=== PATIENT | male | born 1985 | race Caucasian/White ===

== ENCOUNTER 2017-07-29 23:39 | Inpatient (IN) | payer MEDICAID ==
[~2017-07-29] VITALS: Ht 177.8 cm; Wt 50.0 kg
[~2017-07-29 23:39] MED LIST: ALBU2.5V12 NEB; CHLO25CA10 PO
[2017-07-29] MEDS ORDERED: normal saline 1000ML IV soln IVB ONE ×2 (23:50)
[2017-07-29] MEDS ORDERED: morphine 4 MG/ML inj SYRINge IV ONE (23:50)
[2017-07-29] MEDS ORDERED: ondansetron/PF 4mg/2ml inj IV ONE (23:50)
[2017-07-30 00:45] LABS: BASOPHILS # (AUTO) 0.1 X10'3 (0-0.2); BASOPHILS % (AUTO) 0.4 % (0-1); EOSINOPHILS % (AUTO) 0 % (0-6); HEMATOCRIT 44.9 % (42.0-52.0); HEMOGLOBIN 14.9 g/dl (14.0-17.9); LYMPHOCYTES # (AUTO) 0.7 X10'3 (1.1-4.8); LYMPHOCYTES % (AUTO) 4.4 % (21-51); MEAN CORPUSCULAR HEMOGLOBIN 34.2 PG (27.0-31.0); MEAN CORPUSCULAR HGB CONC 33.3 % (33.0-36.5); MEAN CORPUSCULAR VOLUME 102.9 FL (78-98); MEAN PLATELET VOLUME 8.7 FL (7.4-10.4); MONOCYTES # (AUTO) 0.9 X10'3 (0-0.9); MONOCYTES % (AUTO) 5.8 % (2-12); NEUTROPHILS # (AUTO) 13.1 X10'3 (1.8-7.7); NEUTROPHILS % (AUTO) 89.4 % (42-75); PLATELET COUNT 206 X10'3 (140-440); RED BLOOD COUNT 4.36 X10'6 (4.70-6.10); RED CELL DISTRIBUTION WIDTH 13.7 % (11.5-14.5); WHITE BLOOD COUNT 14.8 X10'3 (4.5-11.0)
[2017-07-30 00:58] LABS: ALANINE AMINOTRANSFERASE 53 U/L (12-78); ALBUMIN 4.1 G/DL (3.4-5.0); ALBUMIN/GLOBULIN RATIO 1.2 (1.1-1.5); ALKALINE PHOSPHATASE 74 IU/L (46-116); ANION GAP 21 (8-16); ASPARTATE AMINO TRANSFERASE 40 U/L (10-37); BILIRUBIN,TOTAL 0.8 MG/DL (0.1-1.0); BLOOD UREA NITROGEN 19 MG/DL (7-18); BUN/CREATININE RATIO 17.6 (5.4-32.0); CALCIUM 8.5 MG/DL (8.5-10.1); CHLORIDE 104 MMOL/L (99-107); CREATININE 1.08 MG/DL (0.60-1.10); GLUCOSE 120 MG/DL (70-104); LIPASE 3154 U/L (73-393); SODIUM 146 MMOL/L (135-145); TOTAL CARBON DIOXIDE 21.3 MMOL/L (24-32); TOTAL PROTEIN 7.4 G/DL (6.4-8.2); eGFR 80 ML/MIN
[2017-07-30 00:59] LABS: ETHANOL < 0.010 GM/DL (0.0-0.010)
[2017-07-30] MEDS ORDERED: morphine 4 MG/ML inj SYRINge IV ONE (01:10)
[2017-07-30] MEDS ORDERED: normal saline 1000ML IV soln IVB ONE (01:45)
[2017-07-30] MEDS ORDERED: HYDROmorphone inj. 0.5 MG/0.5 ML DISP.SYRIN IV PRN (02:00)
[2017-07-30] MEDS ORDERED: magnesium Cl slow-release 64mg tablet PO PRN (02:00)
[2017-07-30] MEDS ORDERED: magnesium hydroxide 30ml (MOM) UD suspension PO PRN (02:00)
[2017-07-30] MEDS ORDERED: potassium Cl 20 mEq SR tablet PO PRN ×2 (02:00)
[2017-07-30] MEDS ORDERED: ondansetron/PF 4mg/2ml inj IV PRN (02:00)
[2017-07-30] MEDS ORDERED: magnesium 4gm in 100ml NS 100 ML IV PRN (02:00)
[2017-07-30] MEDS ORDERED: haloperidol lactate 5mg/ml inj IM PRN (02:00)
[2017-07-30] MEDS ORDERED: potassium Cl 40MEQ/NS 500ml 500 ML IV PRN ×2 (02:00)
[2017-07-30] MEDS ORDERED: thiamine 100mg/ml 2ml inj. IV ONE (02:00)
[2017-07-30] MEDS ORDERED: magnesium 2GM in 50ml NS 50 ML IV PRN (02:00)
[2017-07-30] MEDS ORDERED: acetaminophen 325mg tablet PO PRN (02:00)
[2017-07-30] MEDS ORDERED: haloperidol 5mg tablet PO PRN (02:00)
[2017-07-30] MEDS ORDERED: mag hydrox/Alum hydrox/simeth 30ml oral suspension PO PRN (02:00)
[2017-07-30] MEDS ORDERED: dextrose 50%-water 50ml dispensing syringe IV PRN (02:00)
[2017-07-30] MEDS: HYDROmorphone inj. 0.5 MG/0.5 ML DISP.SYRIN IV PRN ×4 (02:33→23:08)
[2017-07-30 02:52] LABS: CLARITY,URINE SLIGHTLY CLOUDY (Clear); COLOR,URINE YELLOW (Yellow); GLUCOSE, URINE NEGATIVE (Neg); KETONES,URINE >=80 mg/dl (Neg); LEUKOCYTE ESTERASE ,URINE NEGATIVE (Neg); NITRITES, URINE NEGATIVE (Neg); OCCULT BLOOD,URINE NEGATIVE (Neg); PROTEIN,URINE 100 mg/dl (Neg); UROBILINOGEN,URINE 0.2 E.U/dL (0.2-1.0)
[2017-07-30 02:54] LABS: UA COLLECTION TYPE VOIDED
[2017-07-30 02:57] LABS: BACTERIA,URINE FEW /HPF (Neg); MUCUS STRANDS MANY /LPF (Neg); RBC,URINE NONE SEEN /HPF (0-2); SQUAMOUS EPITHELIAL CELL,UR FEW /LPF (FEW)
[2017-07-30] MEDS: normal saline 1000ml 1,000 ML IV SCH ×2 (03:11→12:11)
[2017-07-30] MEDS: K and/or MAG REPLACEMENT MC SCH (03:13)
[2017-07-30] MEDS: LORazepam 2 mg/ml vial IV PRN ×3 (04:46→06:37)
[2017-07-30] MEDS: heparin, porcine 5000 units/ml vial SQ SCH ×2 (08:39→20:25)
[2017-07-30 09:12] LABS: URINE AMPHETAMINE SCREEN NEGATIVE (Neg); URINE BARBITUATE SCREEN NEGATIVE (Neg); URINE BENZODIAZEPINES SCREEN NEGATIVE (Neg); URINE CANNABINOID SCREEN POSITIVE (Neg); URINE COCAINE SCREEN NEGATIVE (Neg); URINE METHADONE SCREEN NEGATIVE (Neg); URINE OPIATE SCREEN POSITIVE (Neg); URINE PHENCYCLIDINE SCREEN NEGATIVE (Neg)
[2017-07-30 19:00] VITALS: BP 109/82
[2017-07-30] MEDS ORDERED: temazepam 15mg capsule PO PRN (21:00)
[2017-07-31] VITALS: BP 128/82
[2017-07-31] MEDS: HYDROmorphone inj. 0.5 MG/0.5 ML DISP.SYRIN IV PRN ×3 (03:25→12:31)
[2017-07-31] MEDS: normal saline 1000ml 1,000 ML IV SCH ×2 (03:25→08:11)
[2017-07-31 05:08] LABS: BASOPHILS % (AUTO) 0.2 % (0-1); EOSINOPHILS # (AUTO) 0.1 X10'3 (0-0.9); EOSINOPHILS % (AUTO) 1.5 % (0-6); HEMATOCRIT 39.4 % (42.0-52.0); HEMOGLOBIN 13.6 g/dl (14.0-17.9); LYMPHOCYTES # (AUTO) 2.1 X10'3 (1.1-4.8); LYMPHOCYTES % (AUTO) 21.7 % (21-51); MEAN CORPUSCULAR HEMOGLOBIN 35.6 PG (27.0-31.0); MEAN CORPUSCULAR HGB CONC 34.6 % (33.0-36.5); MEAN CORPUSCULAR VOLUME 102.9 FL (78-98); MEAN PLATELET VOLUME 8.8 FL (7.4-10.4); MONOCYTES # (AUTO) 0.5 X10'3 (0-0.9); MONOCYTES % (AUTO) 5.2 % (2-12); NEUTROPHILS % (AUTO) 71.4 % (42-75); PLATELET COUNT 121 X10'3 (140-440); RED BLOOD COUNT 3.83 X10'6 (4.70-6.10); WHITE BLOOD COUNT 9.8 X10'3 (4.5-11.0)
[2017-07-31 05:44] LABS: ALANINE AMINOTRANSFERASE 42 U/L (12-78); ALBUMIN 3.2 G/DL (3.4-5.0); ALBUMIN/GLOBULIN RATIO 1.1 (1.1-1.5); ALKALINE PHOSPHATASE 58 IU/L (46-116); ANION GAP 12 (8-16); ASPARTATE AMINO TRANSFERASE 37 U/L (10-37); BILIRUBIN,TOTAL 0.9 MG/DL (0.1-1.0); BLOOD UREA NITROGEN 5 MG/DL (7-18); BUN/CREATININE RATIO 7.6 (5.4-32.0); CALCIUM 8.1 MG/DL (8.5-10.1); CHLORIDE 103 MMOL/L (99-107); CHOL/HDL RATIO 2.9 (0.00-4.99); CHOLESTEROL 125 MG/DL (0-200); CREATININE 0.66 MG/DL (0.60-1.10); GLUCOSE 69 MG/DL (70-104); HDL CHOLESTEROL 43 MG/DL (35-60); LDL CHOLESTEROL 60 MG/DL (50-100); MAGNESIUM 1.7 MG/DL (1.5-2.4); SODIUM 142 MMOL/L (135-145); TRIGLYCERIDES 77 MG/DL (20-135); eGFR > 90 ML/MIN
[2017-07-31 07:00] VITALS: BP 130/89
[2017-07-31] MEDS ORDERED: dextrose ORAL solution 15 GM/59 ML bottle PO PRN ×2 (07:55)
[2017-07-31] MEDS ORDERED: glucagon, human recombinant 1mg kit SUBCUT PRN (07:55)
[2017-07-31] MEDS ORDERED: dextrose 50%-water 50ml dispensing syringe IV PRN ×2 (07:55)
[2017-07-31] MEDS: K and/or MAG REPLACEMENT MC SCH (08:00)
[2017-07-31] MEDS: heparin, porcine 5000 units/ml vial SQ SCH (08:26)
[2017-07-31] MEDS ORDERED: NO HOME MEDS (10:30)
[2017-07-31] MEDS: LORazepam 2 mg/ml vial IV PRN ×2 (10:57→12:31)
[2017-07-31 11:00] VITALS: BP 137/97
[2017-07-31] MEDS ORDERED: CHLO25CA10 PO (16:12)
[2017-07-31] MEDS ORDERED: THI100T PO (16:12)
[2017-07-31] MEDS ORDERED: ATI1T PO (16:12)
[2017-08-01] MEDS ORDERED: LORazepam 2 mg/ml vial IV PRN (02:00)
[2017-08-01] MEDS ORDERED: LORazepam 1 MG tablet PO PRN (02:00)
[2017-08-03] MEDS ORDERED: LORazepam 2 mg/ml vial IV PRN (02:00)
[2017-08-03] MEDS ORDERED: LORazepam 1 MG tablet PO PRN (02:00)
== END 2017-07-31 17:33 | disposition home or self-care (01) | DRG 282 ==
LOC: ER 23:39 → ED HOLD 07-30 01:56 → SUR 3N 07-30 17:20
PROVIDERS: ADMIT Internal Medicine; ATTEND Internal Medicine
DX: K85.20 Alcohol induced acute pancreatitis without necrosis or infection (principal); Z68.1 Body mass index [BMI] 19.9 or less, adult; E86.0 Dehydration; F10.10 Alcohol abuse, uncomplicated; F12.90 Cannabis use, unspecified, uncomplicated; F17.210 Nicotine dependence, cigarettes, uncomplicated; F41.9 Anxiety disorder, unspecified; K86.1 Other chronic pancreatitis; R00.0 Tachycardia, unspecified
CPT/HCPCS: 36415; 71045; 80053; 80061; 80305; 80320; 81001; 82948; 83690; 83735; 84132; 85025; 87070; 87088; 96361; 96374; 96375; 96376; 99285; J1170; J1630; J1644; J2060; J2270; J2405; J3411; J3480; J7030

== ENCOUNTER 2017-08-09 14:52 | Emergency (ER) | payer MEDICAID ==
[~2017-08-09] VITALS: Ht 165.1 cm; Wt 60.0 kg
[~2017-08-09 14:52] MED LIST changes: -ALBU2.5V12 NEB; +ATI1T PO; +THI100T PO
[2017-08-09 15:36] VITALS: BP 119/81
[2017-08-09] MEDS ORDERED: ibuprofen tablet 400 MG TABLET PO ONE (17:10)
== END 2017-08-09 18:33 | disposition home or self-care (01) ==
LOC: ER 14:55
DX: S60.221A Contusion of right hand, initial encounter (principal); F17.200 Nicotine dependence, unspecified, uncomplicated; F12.10 Cannabis abuse, uncomplicated; Z79.899 Other long term (current) drug therapy; W20.8XXA Other cause of strike by thrown, projected or falling object, initial encounter; Y93.89 Activity, other specified; Y92.89 Other specified places as the place of occurrence of the external cause; Y99.8 Other external cause status
CPT/HCPCS: 29125; 73130; 99284; A6449

== ENCOUNTER 2017-08-20 13:39 | Outpatient (CLI) | payer MEDICAID ==
[2017-08-20 13:41] VITALS: BP 132/97
== END 2017-08-20 14:30 | disposition home or self-care (01) ==
LOC: ORTHO 13:39
PROVIDERS: ATTEND Nurse Practitioner Family
DX: S62.001A Unspecified fracture of navicular [scaphoid] bone of right wrist, initial encounter for closed fracture (principal); F17.210 Nicotine dependence, cigarettes, uncomplicated; K85.90 Acute pancreatitis without necrosis or infection, unspecified; F12.90 Cannabis use, unspecified, uncomplicated; Z72.89 Other problems related to lifestyle; X58.XXXA Exposure to other specified factors, initial encounter; Y93.89 Activity, other specified; Y92.9 Unspecified place or not applicable; Y99.9 Unspecified external cause status
CPT/HCPCS: 29075; 99213; A4590

== ENCOUNTER 2017-09-03 13:33 | Outpatient (CLI) | payer MEDICAID ==
[2017-09-03 13:31] VITALS: BP 105/72
== END 2017-09-03 14:29 | disposition home or self-care (01) ==
LOC: ORTHO 13:33
PROVIDERS: ATTEND Nurse Practitioner Family
DX: S69.91XD Unspecified injury of right wrist, hand and finger(s), subsequent encounter (principal); K85.90 Acute pancreatitis without necrosis or infection, unspecified; F17.200 Nicotine dependence, unspecified, uncomplicated; F12.90 Cannabis use, unspecified, uncomplicated; Z72.89 Other problems related to lifestyle; X58.XXXD Exposure to other specified factors, subsequent encounter
CPT/HCPCS: 73110; 99213

== ENCOUNTER 2018-12-07 10:13 | Emergency (ER) | payer MEDICAID, OTHER ==
[~2018-12-07] VITALS: Ht 165.1 cm; Wt 56.0 kg
[~2018-12-07 10:13] MED LIST changes: -ATI1T PO; -CHLO25CA10 PO; +IBUP-1986 PO; +NO HOME MEDS; -THI100T PO
--- NOTE | 2018-12-07 10:29 | NUR ---
PT GIVEN URINE SPECIMEN CUP AND PT AMBULATORY TO BATHROOM WITH STEADY GAIT TO PROVIDE URINE SAMPLE PER ORDERS NOW.
[2018-12-07 10:48] LABS: BASOPHILS # (AUTO) 0.1 X10'3 (0-0.2); BASOPHILS % (AUTO) 0.8 % (0-1); EOSINOPHILS # (AUTO) 0.2 X10'3 (0-0.9); EOSINOPHILS % (AUTO) 2.4 % (0-6); HEMATOCRIT 46.7 % (42.0-52.0); HEMOGLOBIN 16.1 g/dl (14.0-17.9); LYMPHOCYTES # (AUTO) 3.4 X10'3 (1.1-4.8); LYMPHOCYTES % (AUTO) 33.6 % (21-51); MEAN CORPUSCULAR HEMOGLOBIN 35.5 PG (27.0-31.0); MEAN CORPUSCULAR HGB CONC 34.5 g/dL (33.0-36.5); MEAN CORPUSCULAR VOLUME 102.9 FL (78-98); MONOCYTES # (AUTO) 0.7 X10'3 (0-0.9); MONOCYTES % (AUTO) 7.3 % (2-12); NEUTROPHILS # (AUTO) 5.7 X10'3 (1.8-7.7); NEUTROPHILS % (AUTO) 55.9 % (42-75); PLATELET COUNT 265 X10'3 (140-440); RED BLOOD COUNT 4.54 X10'6 (4.70-6.10); RED CELL DISTRIBUTION WIDTH 13.4 % (11.5-14.5); WHITE BLOOD COUNT 10.2 X10'3 (4.5-11.0)
[2018-12-07 10:50] LABS: CLARITY,URINE CLEAR (Clear); COLOR,URINE YELLOW (Yellow); GLUCOSE, URINE NEGATIVE (Neg); KETONES,URINE NEGATIVE (Neg); LEUKOCYTE ESTERASE ,URINE NEGATIVE (Neg); NITRITES, URINE NEGATIVE (Neg); OCCULT BLOOD,URINE NEGATIVE (Neg); PROTEIN,URINE NEGATIVE (Neg); UROBILINOGEN,URINE 0.2 E.U/dL (0.2-1.0)
[2018-12-07] MEDS ORDERED: proCHLORperazine 10 MG/2 ml inj IV ONE (10:50)
[2018-12-07] MEDS ORDERED: LIDOcaine Viscous 15ml cup PO ONE (10:50)
[2018-12-07] MEDS ORDERED: mag hydrox/Alum hydrox/simeth 30ml oral suspension PO ONE (10:50)
[2018-12-07] MEDS ORDERED: normal saline 1000ML IV soln IVB ONE (10:50)
[2018-12-07] MEDS ORDERED: pantoprazole 40 MG vial IV ONE (10:50)
[2018-12-07] MEDS ORDERED: ESOMEPRAZOLE 40 MG VIAL IV ONE (11:00)
[2018-12-07 11:01] LABS: ALANINE AMINOTRANSFERASE 84 U/L (12-78); ALBUMIN 3.8 G/DL (3.4-5.0); ALBUMIN/GLOBULIN RATIO 1.1 (1.1-1.5); ALKALINE PHOSPHATASE 106 IU/L (46-116); ANION GAP 13 (8-16); ASPARTATE AMINO TRANSFERASE 82 U/L (10-37); BILIRUBIN,TOTAL 0.4 MG/DL (0.1-1.0); BLOOD UREA NITROGEN 5 MG/DL (7-18); BUN/CREATININE RATIO 6.6 (5.4-32.0); CALCIUM 8.1 MG/DL (8.5-10.1); CHLORIDE 109 MMOL/L (99-107); CREATININE 0.76 MG/DL (0.60-1.10); GLUCOSE 96 MG/DL (70-104); LIPASE 294 U/L (73-393); POTASSIUM 4.2 MMOL/L (3.5-5.1); SODIUM 146 MMOL/L (135-145); TOTAL CARBON DIOXIDE 24.5 MMOL/L (24-32); TOTAL PROTEIN 7.4 G/DL (6.4-8.2); eGFR > 90 ML/MIN
[2018-12-07 11:03] LABS: UA COLLECTION TYPE CLN CATCH MIDSTREAM
[2018-12-07 12:30] VITALS: BP 109/56
[2018-12-07] MEDS ORDERED: OMEP40CA13 PO (12:30)
--- NOTE | 2018-12-07 12:33 | NUR ---
PT STATES PAIN SUBSIDED A LITTLE NOT BAD
== END 2018-12-07 12:52 | disposition home or self-care (01) ==
LOC: ER 10:14
DX: R10.12 Left upper quadrant pain (principal); G89.29 Other chronic pain; F12.90 Cannabis use, unspecified, uncomplicated; Z98.890 Other specified postprocedural states; Z79.899 Other long term (current) drug therapy
CPT/HCPCS: 36415; 76700; 80053; 81003; 83690; 85025; 85610; 93005; 96361; 96374; 96375; 99284; J0780; J7030

== ENCOUNTER 2020-07-17 11:40 | Emergency (ER) | payer MEDICAID ==
[~2020-07-17] VITALS: Ht 167.6 cm; Wt 54.8 kg
[2020-07-17 13:02] LABS: BASOPHILS % (AUTO) 0.4 % (0-1); EOSINOPHILS % (AUTO) 0 % (0-6); HEMATOCRIT 42.9 % (42.0-52.0); HEMOGLOBIN 14.7 g/dl (14.0-17.9); LYMPHOCYTES # (AUTO) 0.6 X10'3 (1.1-4.8); LYMPHOCYTES % (AUTO) 5.6 % (21-51); MEAN CORPUSCULAR HEMOGLOBIN 34.2 PG (27.0-31.0); MEAN CORPUSCULAR HGB CONC 34.3 g/dL (33.0-36.5); MEAN CORPUSCULAR VOLUME 99.6 FL (78-98); MEAN PLATELET VOLUME 9.4 FL (7.4-10.4); MONOCYTES # (AUTO) 0.8 X10'3 (0-0.9); MONOCYTES % (AUTO) 7.3 % (2-12); NEUTROPHILS # (AUTO) 9.3 X10'3 (1.8-7.7); NEUTROPHILS % (AUTO) 86.7 % (42-75); PLATELET COUNT 114 X10'3 (140-440); RED BLOOD COUNT 4.31 X10'6 (4.70-6.10); RED CELL DISTRIBUTION WIDTH 14.8 % (11.5-14.5); WHITE BLOOD COUNT 10.7 X10'3 (4.5-11.0)
[2020-07-17 13:23] LABS: ALANINE AMINOTRANSFERASE 183 U/L (12-78); ALBUMIN 4.5 G/DL (3.4-5.0); ALBUMIN/GLOBULIN RATIO 1.3 (1.1-1.5); ALKALINE PHOSPHATASE 120 IU/L (46-116); ANION GAP 19 (8-16); ASPARTATE AMINO TRANSFERASE 216 U/L (10-37); BILIRUBIN,TOTAL 2.1 MG/DL (0.1-1.0); BLOOD UREA NITROGEN 18 MG/DL (7-18); BUN/CREATININE RATIO 15.8 (5.4-32.0); CALCIUM 9.3 MG/DL (8.5-10.1); CHLORIDE 101 MMOL/L (99-107); CREATININE 1.14 MG/DL (0.60-1.10); GLUCOSE 152 MG/DL (70-104); POTASSIUM 3.5 MMOL/L (3.5-5.1); SODIUM 149 MMOL/L (135-145); TOTAL CARBON DIOXIDE 29.1 MMOL/L (24-32); TOTAL PROTEIN 8.1 G/DL (6.4-8.2); eGFR 74 ML/MIN
[2020-07-17 13:49] LABS: LIPASE 1953 U/L (73-393)
[2020-07-17] MEDS ORDERED: iohexol 300mg/ml 100ml inj. ONE (14:36)
--- NOTE | 2020-07-17 15:37 | NUR ---
pt to ct via wheelchair.
[2020-07-17] MEDS ORDERED: normal saline 1000ML IV soln IVB ONE ×2 (15:40→16:40)
[2020-07-17] MEDS ORDERED: morphine 4 MG/ML inj SYRINge IV ONE ×2 (15:50→16:40)
[2020-07-17] MEDS ORDERED: proCHLORperazine 10 MG/2 ml inj IV ONE (15:50)
--- NOTE | 2020-07-17 17:12 | NUR ---
PT REPORTS THAT HE FELL DOWN A FLIGHT OF STAIRS 4 DAYS AGO WITH BRUISING ON HIS HEAD, BACK AND KNEES. PETRA LEIVA NOTIFIED.
[2020-07-17] MEDS ORDERED: thiamine inj. 100 MG in normal saline 100ml IV soln 99 ML IV ONE (17:30)
[2020-07-17] MEDS ORDERED: LORazepam 2 mg/ml vial IV ONE (17:30)
--- NOTE | 2020-07-17 17:43 | NUR ---
PT TO CT VIA WHEELCHAIR WITH BILINGUAL ADMINISTRATIVE ASSISTANT.
[2020-07-17] MEDS ORDERED: PROC-8 PO (18:06)
[2020-07-17] MEDS ORDERED: OXYC-149 PO (18:06)
[2020-07-17 18:11] LABS: CLARITY,URINE CLEAR (Clear); COLOR,URINE YELLOW (Yellow); GLUCOSE, URINE NEGATIVE (Neg); KETONES,URINE 40 mg/dl (Neg); LEUKOCYTE ESTERASE ,URINE NEGATIVE (Neg); OCCULT BLOOD,URINE NEGATIVE (Neg); PH,URINE 7.5 (4.8-8.0); PROTEIN,URINE 100 mg/dl (Neg)
[2020-07-17 18:12] LABS: UA COLLECTION TYPE URINAL
[2020-07-17 18:17] LABS: HYALINE CASTS 0-3 /LPF (NEGATIVE)
[2020-07-17 18:18] LABS: BACTERIA,URINE FEW /HPF (Neg); SQUAMOUS EPITHELIAL CELL,UR FEW /LPF (FEW); TRANSITIONAL EPI CELLS,URINE FEW /HPF
[2020-07-17 18:19] LABS: RBC,URINE 0-2 /HPF (0-2); WBC,URINE 0-4 /HPF (0-4)
[2020-07-17 18:25] LABS: NITRITES, URINE NEGATIVE (Neg)
[2020-07-17 18:49] VITALS: BP 119/80
== END 2020-07-17 18:56 | disposition home or self-care (01) ==
LOC: ER 11:41
DX: K85.80 Other acute pancreatitis without necrosis or infection (principal); G89.29 Other chronic pain; F12.90 Cannabis use, unspecified, uncomplicated; Z72.89 Other problems related to lifestyle; Z79.899 Other long term (current) drug therapy
CPT/HCPCS: 36415; 70450; 74177; 76700; 80053; 81001; 83690; 85025; 96365; 96375; 96376; 99285; J0780; J2060; J2270; J3411; J7030; Q9967

== ENCOUNTER 2020-09-06 09:04 | Inpatient (IN) | payer MEDICAID ==
[~2020-09-06] VITALS: Ht 167.6 cm; Wt 55.6 kg
[~2020-09-06 09:04] MED LIST changes: +OXYC-149 PO; +PROC-8 PO
[2020-09-06 10:08] LABS: BASOPHILS % (AUTO) 0.4 % (0-1); EOSINOPHILS # (AUTO) 0.2 X10'3 (0-0.9); HEMATOCRIT 43.4 % (42.0-52.0); LYMPHOCYTES # (AUTO) 2.2 X10'3 (1.1-4.8); LYMPHOCYTES % (AUTO) 29.9 % (21-51); MEAN CORPUSCULAR HGB CONC 34.7 g/dL (33.0-36.5); MEAN PLATELET VOLUME 7.8 FL (7.4-10.4); MONOCYTES # (AUTO) 1.4 X10'3 (0-0.9); MONOCYTES % (AUTO) 19.2 % (2-12); NEUTROPHILS # (AUTO) 3.5 X10'3 (1.8-7.7); NEUTROPHILS % (AUTO) 47.5 % (42-75); PLATELET COUNT 326 X10'3 (140-440); WHITE BLOOD COUNT 7.3 X10'3 (4.5-11.0)
[2020-09-06] MEDS ORDERED: ondansetron/PF 4mg/2ml inj IV ONE (10:10)
[2020-09-06] MEDS ORDERED: pantoprazole 40 MG vial IV ONE (10:10)
[2020-09-06] MEDS ORDERED: normal saline 1000ML IV soln IVB ONE (10:10)
[2020-09-06 10:16] LABS: ALANINE AMINOTRANSFERASE 299 U/L (12-78); ALBUMIN 3.5 G/DL (3.4-5.0); ALBUMIN/GLOBULIN RATIO 0.9 (1.1-1.5); ALKALINE PHOSPHATASE 88 IU/L (46-116); ANION GAP 11 (8-16); ASPARTATE AMINO TRANSFERASE 210 U/L (10-37); BILIRUBIN,TOTAL 0.3 MG/DL (0.1-1.0); BLOOD UREA NITROGEN 5 MG/DL (7-18); BUN/CREATININE RATIO 6.3 (5.4-32.0); CALCIUM 8.4 MG/DL (8.5-10.1); CHLORIDE 100 MMOL/L (99-107); GLUCOSE 130 MG/DL (70-104); LIPASE 477 U/L (73-393); SODIUM 147 MMOL/L (135-145); TOTAL CARBON DIOXIDE 35.7 MMOL/L (24-32); TOTAL PROTEIN 7.3 G/DL (6.4-8.2); eGFR > 90 ML/MIN
[2020-09-06 10:23] LABS: POTASSIUM 2.2 MMOL/L (3.5-5.1)
[2020-09-06] MEDS ORDERED: morphine 4 MG/ML inj SYRINge IV ONE (11:00)
[2020-09-06] MEDS ORDERED: potassium Cl 10 mEq/100mL bag IV ONE (11:00)
[2020-09-06 12:18] LABS: POTASSIUM 2.2 MMOL/L (3.5-5.1)
[2020-09-06] MEDS ORDERED: LORazepam 2 mg/ml vial IV ONE (12:30)
[2020-09-06] MEDS: morphine 2 MG/ML inj. syringe IV PRN ×3 (12:50→20:34)
[2020-09-06] MEDS ORDERED: POTASSIUM BICARB 20meq eff tab 20 MEQ TABLET.EFF PO ONE (13:10)
[2020-09-06] MEDS ORDERED: magnesium 4gm in 100ml NS 100 ML IV ONE (13:10)
[2020-09-06 13:32] LABS: MAGNESIUM 1.8 MG/DL (1.5-2.4)
[2020-09-06] MEDS ORDERED: haloperidol 5mg tablet PO PRN (13:40)
[2020-09-06] MEDS ORDERED: metoclopramide 5 mg/ml inj IV PRN (13:40)
[2020-09-06] MEDS ORDERED: morphine 2 MG/ML inj. syringe IV PRN (13:40)
[2020-09-06] MEDS ORDERED: potassium Cl 20 mEq SR tablet PO PRN ×2 (13:40)
[2020-09-06] MEDS ORDERED: bisacodyl 10mg suppository rectal RC PRN (13:40)
[2020-09-06] MEDS ORDERED: mag hydrox/Alum hydrox/simeth 30ml oral suspension PO PRN ×2 (13:40)
[2020-09-06] MEDS ORDERED: magnesium 2GM in 50ml NS 50 ML IV PRN (13:40)
[2020-09-06] MEDS ORDERED: magnesium Cl slow-release 64mg tablet PO PRN (13:40)
[2020-09-06] MEDS ORDERED: dextrose 50%-water 50ml dispensing syringe IV PRN (13:40)
[2020-09-06] MEDS ORDERED: magnesium hydroxide 30ml (MOM) UD suspension PO PRN (13:40)
[2020-09-06] MEDS ORDERED: HYDROcodone/acetaminophen 5mg/325mg tablet PO PRN (13:40)
[2020-09-06] MEDS ORDERED: ondansetron/PF 4mg/2ml inj IV PRN (13:40)
[2020-09-06] MEDS ORDERED: magnesium 4gm in 100ml NS 100 ML IV PRN (13:40)
[2020-09-06] MEDS ORDERED: haloperidol lactate 5mg/ml inj IM PRN (13:40)
[2020-09-06] MEDS ORDERED: potassium Cl 40MEQ/1/2NS 520ml 520 ML IV PRN (13:40)
[2020-09-06] MEDS ORDERED: acetaminophen 650mg rectal suppository RC PRN (13:40)
[2020-09-06] MEDS ORDERED: acetaminophen 325mg tablet PO PRN ×2 (13:40)
[2020-09-06] MEDS ORDERED: thiamine 100mg/ml 2ml inj. IV ONE (13:40)
[2020-09-06] MEDS ORDERED: diphenhydrAMINE 25mg capsule PO PRN (13:40)
[2020-09-06] MEDS ORDERED: diphenhydrAMINE 50 mg/ml inj IV PRN (13:40)
[2020-09-06 14:32] LABS: CLARITY,URINE CLEAR (Clear); GLUCOSE, URINE NEGATIVE (Neg); KETONES,URINE NEGATIVE (Neg); LEUKOCYTE ESTERASE ,URINE NEGATIVE (Neg); NITRITES, URINE NEGATIVE (Neg); OCCULT BLOOD,URINE NEGATIVE (Neg); PH,URINE 6.5 (4.8-8.0); PROTEIN,URINE 30 mg/dl (Neg)
[2020-09-06 14:42] LABS: COLOR,URINE DARK YELLOW (Yellow); UA COLLECTION TYPE CLN CATCH MIDSTREAM
[2020-09-06 14:43] LABS: URINE AMPHETAMINE SCREEN NEGATIVE (Neg); URINE BARBITUATE SCREEN NEGATIVE (Neg); URINE BENZODIAZEPINES SCREEN NEGATIVE (Neg); URINE CANNABINOID SCREEN POSITIVE (Neg); URINE COCAINE SCREEN NEGATIVE (Neg); URINE METHADONE SCREEN NEGATIVE (Neg); URINE OPIATE SCREEN POSITIVE (Neg); URINE PHENCYCLIDINE SCREEN NEGATIVE (Neg)
[2020-09-06 14:44] LABS: BACTERIA,URINE NONE SEEN /HPF (Neg); FINE GRANULAR CAST 0-3 /LPF (NEGATIVE); HYALINE CASTS 0-3 /LPF (NEGATIVE); MUCUS STRANDS MODERATE /LPF (Neg); RBC,URINE NONE SEEN /HPF (0-2); SQUAMOUS EPITHELIAL CELL,UR FEW /LPF (FEW); WBC,URINE 0-4 /HPF (0-4)
[2020-09-06 14:50] LABS: ETHANOL 0.187 GM/DL (0.0-0.010); HEMOGLOBIN A1C 5.5 % (4.5-6.2)
[2020-09-06] MEDS ORDERED: dextrose 50%-water 50ml dispensing syringe IV ONE (15:05)
--- NOTE | 2020-09-06 15:24 | NUR ---
received report from MICHEAL Donahue. awaiting patient arrival.
--- NOTE | 2020-09-06 15:42 | NUR ---
patient arrived to floor. VSS. c/o 02/02 pain.
[2020-09-06 15:45] VITALS: BP 120/90
[2020-09-06] MEDS: potassium Cl 40MEQ/1/2NS 520ml 520 ML IV PRN ×2 (15:55→23:24)
[2020-09-06] MEDS: LORazepam 2 mg/ml vial IV PRN ×2 (16:38→23:24)
[2020-09-06] MEDS: potassium Cl 20mEq in D5-NS 1,000 ML IV SCH ×2 (17:35→21:40)
--- NOTE | 2020-09-06 17:47 | NUR ---
PAGER ID: [phone] MESSAGE: tae youngerA: patient requesting nicotine patch. 1ppd smoker. thanks! saira [phone]
--- NOTE | 2020-09-06 18:20 | NUR ---
Patient in room [facility]. I have received report from Yodit BURTON and had the opportunity to ask questions and assume patient care.
--- NOTE | 2020-09-06 18:25 | NUR ---
Problems reprioritized. Patient report given, questions answered & plan of care reviewed with rafael watt.
[2020-09-06 20:00] VITALS: BP 121/76
[2020-09-06] MEDS: K and/or MAG REPLACEMENT MC SCH (20:00)
[2020-09-06] MEDS: heparin, porcine 5000 units/ml vial SQ SCH (20:33)
[2020-09-06] MEDS: diatr meglu/diatrizoate 30ml oral sol.-(3 dose) bottle PO SCH (20:34)
[2020-09-07] VITALS: BP 129/81
--- NOTE | 2020-09-07 02:43 | NUR ---
Problems reprioritized. Patient report given, questions answered & plan of care reviewed with Cecelia BURTON.
[2020-09-07] MEDS: potassium Cl 20mEq in D5-NS 1,000 ML IV SCH ×3 (02:48→23:34)
[2020-09-07] MEDS: morphine 2 MG/ML inj. syringe IV PRN ×4 (02:49→18:10)
[2020-09-07] MEDS: potassium Cl 40MEQ/1/2NS 520ml 520 ML IV PRN (04:01)
[2020-09-07] MEDS: LORazepam 2 mg/ml vial IV PRN ×3 (05:32→19:40)
[2020-09-07 06:05] LABS: BASOPHILS # (AUTO) 0.1 X10'3 (0-0.2); BASOPHILS % (AUTO) 0.7 % (0-1); EOSINOPHILS # (AUTO) 0.1 X10'3 (0-0.9); EOSINOPHILS % (AUTO) 1.4 % (0-6); HEMATOCRIT 37.2 % (42.0-52.0); HEMOGLOBIN 12.9 g/dl (14.0-17.9); LYMPHOCYTES # (AUTO) 1.9 X10'3 (1.1-4.8); LYMPHOCYTES % (AUTO) 23.9 % (21-51); MEAN CORPUSCULAR HEMOGLOBIN 35.6 PG (27.0-31.0); MEAN CORPUSCULAR HGB CONC 34.7 g/dL (33.0-36.5); MEAN CORPUSCULAR VOLUME 102.6 FL (78-98); MONOCYTES # (AUTO) 1.2 X10'3 (0-0.9); MONOCYTES % (AUTO) 14.3 % (2-12); NEUTROPHILS # (AUTO) 4.8 X10'3 (1.8-7.7); NEUTROPHILS % (AUTO) 59.7 % (42-75); PLATELET COUNT 244 X10'3 (140-440); RED BLOOD COUNT 3.63 X10'6 (4.70-6.10); WHITE BLOOD COUNT 8.1 X10'3 (4.5-11.0)
[2020-09-07 06:27] LABS: ALANINE AMINOTRANSFERASE 196 U/L (12-78); ALBUMIN 2.7 G/DL (3.4-5.0); ALBUMIN/GLOBULIN RATIO 0.9 (1.1-1.5); ALKALINE PHOSPHATASE 72 IU/L (46-116); ANION GAP 5 (8-16); ASPARTATE AMINO TRANSFERASE 91 U/L (10-37); BILIRUBIN,TOTAL 0.3 MG/DL (0.1-1.0); BLOOD UREA NITROGEN 5 MG/DL (7-18); CALCIUM 7.9 MG/DL (8.5-10.1); CHLORIDE 106 MMOL/L (99-107); CHOLESTEROL 104 MG/DL (0-200); CREATININE 0.71 MG/DL (0.60-1.10); GLUCOSE 102 MG/DL (70-104); MAGNESIUM 2.4 MG/DL (1.5-2.4); PHOSPHORUS 1.9 MG/DL (2.3-4.5); POTASSIUM 3.5 MMOL/L (3.5-5.1); SODIUM 141 MMOL/L (135-145); TOTAL CARBON DIOXIDE 30.5 MMOL/L (24-32); TOTAL PROTEIN 5.7 G/DL (6.4-8.2); eGFR > 90 ML/MIN
[2020-09-07 06:28] LABS: AMYLASE 64 U/L (25-115); CHOL/HDL RATIO 2.8 (0.00-4.99); HDL CHOLESTEROL 37 MG/DL (35-60); LDL CHOLESTEROL 51 MG/DL (50-100); LIPASE 362 U/L (73-393); TRIGLYCERIDES 46 MG/DL (20-135)
--- NOTE | 2020-09-07 06:38 | NUR ---
Problems reprioritized. Patient report given, questions answered & plan of care reviewed with MICHEAL Temple and MICHEAL Chin.
--- NOTE | 2020-09-07 06:42 | NUR ---
Patient in room [facility]. I have received report from rio BURTON and had the opportunity to ask questions and assume patient care.
--- NOTE | 2020-09-07 07:01 | NUR ---
Patient in room [facility]. I have received report from MICHEAL Rai and had the opportunity to ask questions and assume patient care.
[2020-09-07 07:14] VITALS: BP 125/82
[2020-09-07] MEDS: thiamine 100mg tablet PO SCH (08:00)
[2020-09-07] MEDS: folic acid 1mg tablet PO SCH (08:00)
[2020-09-07] MEDS: multivitamins, therapeutics tablet PO SCH (08:00)
[2020-09-07] MEDS: K and/or MAG REPLACEMENT MC SCH ×2 (08:00→19:28)
[2020-09-07] MEDS: diatr meglu/diatrizoate 30ml oral sol.-(3 dose) bottle PO SCH ×2 (08:01→10:47)
[2020-09-07] MEDS: heparin, porcine 5000 units/ml vial SQ SCH ×2 (08:02→19:47)
[2020-09-07] MEDS: nicotine 21mg patch - 24 hr TD SCH (08:06)
--- NOTE | 2020-09-07 10:42 | NUR ---
PAGER ID: [phone] MESSAGE: Giuseppe Patricia [phone] - Junior Burgos - Rm [id number] - Patient remains very painful with morphine Q4H. Patient is NPO, can morphine be increased to Q3H?
[2020-09-07] MEDS ORDERED: iohexol 300mg/ml 100ml inj. ONE (10:47)
[2020-09-07] MEDS ORDERED: potassium phosphate inj 30 MMOL in normal saline 500ml IV soln 500 ML IV ONE (11:20)
--- NOTE | 2020-09-07 11:27 | NUR ---
Malnutrition consult: Pt reports 2-13 lb wt loss with decreased appetite per malnutrition risk screen with RN. Patient's current documented wt is stable with wt hx back to 2017 per EMR. Pt admit for EtOH pancreatitis, able to tolerate fluids but difficulty with solids per ED note. Pt currently NPO. Pt with no documented significant decrease in muscle strength or edema. Pt likely with some changes in appetite/PO intake secondary to pancreatitis however currently lacks a minimum of two criteria for malnutrition. Pt receiving routine Thiamine, Folic acid, and MVI for EtOH hx. Pt would benefit from pancreatitis nutrition therapy education once stable. Will continue to follow. Addendum: 09/07/20 at [address] Amended: Links added.
[2020-09-07] MEDS ORDERED: pantoprazole 40 MG vial IV ONE ×2 (11:30→11:45)
[2020-09-07 12:00] VITALS: BP 131/92
[2020-09-07] MEDS: HYDROcodone/acetaminophen 10/325mg tab PO PRN ×2 (15:12→23:40)
--- NOTE | 2020-09-07 18:19 | NUR ---
Patient in room [facility]. I have received report from Giuseppe BURTON and had the opportunity to ask questions and assume patient care.
--- NOTE | 2020-09-07 18:44 | NUR ---
Problems reprioritized. Patient report given, questions answered & plan of care reviewed with MICHEAL Brown.
[2020-09-07 19:00] VITALS: BP 115/76
[2020-09-07 23:12] VITALS: BP 136/90
[2020-09-08] MEDS: morphine 2 MG/ML inj. syringe IV PRN ×3 (03:01→07:40)
--- NOTE | 2020-09-08 03:50 | NUR ---
Accidentally administered 2mg morphine under the [id number] order meant for ER. Non-administered the medication and manually entered on the 2mg morphine q4h order.
[2020-09-08] MEDS: HYDROcodone/acetaminophen 10/325mg tab PO PRN (05:03)
[2020-09-08 05:46] LABS: BASOPHILS # (AUTO) 0.1 X10'3 (0-0.2); EOSINOPHILS # (AUTO) 0.1 X10'3 (0-0.9); NEUTROPHILS # (AUTO) 5.8 X10'3 (1.8-7.7); RED BLOOD COUNT 3.82 X10'6 (4.70-6.10); WHITE BLOOD COUNT 8.8 X10'3 (4.5-11.0)
[2020-09-08 06:00] LABS: ALANINE AMINOTRANSFERASE 147 U/L (12-78); ALBUMIN 2.7 G/DL (3.4-5.0); ALBUMIN/GLOBULIN RATIO 0.8 (1.1-1.5); ALKALINE PHOSPHATASE 79 IU/L (46-116); AMYLASE 44 U/L (25-115); ANION GAP 3 (8-16); ASPARTATE AMINO TRANSFERASE 49 U/L (10-37); BILIRUBIN,TOTAL 0.3 MG/DL (0.1-1.0); BLOOD UREA NITROGEN 2 MG/DL (7-18); BUN/CREATININE RATIO 2.6 (5.4-32.0); CHLORIDE 105 MMOL/L (99-107); CREATININE 0.78 MG/DL (0.60-1.10); GLUCOSE 120 MG/DL (70-104); LIPASE 175 U/L (73-393); PHOSPHORUS 3.1 MG/DL (2.3-4.5); POTASSIUM 3.6 MMOL/L (3.5-5.1); SODIUM 138 MMOL/L (135-145); TOTAL CARBON DIOXIDE 29.7 MMOL/L (24-32); TOTAL PROTEIN 5.9 G/DL (6.4-8.2); eGFR > 90 ML/MIN
--- NOTE | 2020-09-08 06:09 | NUR ---
Patient in room [facility]. I have received report from MICHEAL Brown and had the opportunity to ask questions and assume patient care.
--- NOTE | 2020-09-08 06:44 | NUR ---
Problems reprioritized. Patient report given, questions answered & plan of care reviewed with Giuseppe BURTON.
[2020-09-08] MEDS: LORazepam 2 mg/ml vial IV PRN (06:48)
[2020-09-08 07:24] VITALS: BP 132/92
[2020-09-08] MEDS: multivitamins, therapeutics tablet PO SCH (07:38)
[2020-09-08] MEDS: folic acid 1mg tablet PO SCH (07:38)
[2020-09-08] MEDS: thiamine 100mg tablet PO SCH (07:38)
[2020-09-08] MEDS: heparin, porcine 5000 units/ml vial SQ SCH (07:39)
[2020-09-08] MEDS: nicotine 21mg patch - 24 hr TD SCH (07:40)
[2020-09-08 07:51] LABS: BASOPHILS % (AUTO) 0.8 % (0-1); EOSINOPHILS % (AUTO) 1.4 % (0-6); HEMATOCRIT 39.6 % (42.0-52.0); HEMOGLOBIN 13.5 g/dl (14.0-17.9); LYMPHOCYTES % (AUTO) 22.5 % (21-51); MEAN CORPUSCULAR HEMOGLOBIN 35.5 PG (27.0-31.0); MEAN CORPUSCULAR HGB CONC 34.2 g/dL (33.0-36.5); MEAN CORPUSCULAR VOLUME 103.7 FL (78-98); MEAN PLATELET VOLUME 8.6 FL (7.4-10.4); MONOCYTES # (AUTO) 0.9 X10'3 (0-0.9); MONOCYTES % (AUTO) 9.8 % (2-12); NEUTROPHILS % (AUTO) 65.5 % (42-75); PLATELET COUNT 237 X10'3 (140-440); RED CELL DISTRIBUTION WIDTH 12.9 % (11.5-14.5)
[2020-09-08] MEDS ORDERED: pantoprazole 40 MG vial IV SCH (08:00)
--- NOTE | 2020-09-08 09:47 | NUR ---
PAGER ID: [phone] MESSAGE: Giuseppe Patricia [phone] Patricia Covarrubias - Room 349A - Patient is getting hero and wants to be discharged. Growing impatient and mildly agitated.
[2020-09-08] MEDS ORDERED: THIA100T70 PO (10:33)
[2020-09-08] MEDS ORDERED: FOLI0.4T6 PO (10:33)
[2020-09-08] MEDS ORDERED: GABA100C PO (10:33)
--- NOTE | 2020-09-08 11:07 | NUR ---
Patient discharged to home by taxi. Patient was sent with all belongings (including a wallet and patient did not have a cell phone on admission) and in a WC to the front door to meet the taxi. Ambulated self to taxi. Patient was alert and oriented and stable for discharge. Patient was given discharge instructions and given the opportunity to ask questions and have them answered. Patient Rx were sent by escript to [facility] on [email or web address].
[2020-09-08] MEDS ORDERED: LORazepam 2 mg/ml vial IV PRN (13:40)
[2020-09-08] MEDS ORDERED: LORazepam 1 MG tablet PO PRN (13:40)
[2020-09-10] MEDS ORDERED: LORazepam 2 mg/ml vial IV PRN (13:40)
[2020-09-10] MEDS ORDERED: LORazepam 1 MG tablet PO PRN (13:40)
--- NOTE | 2020-09-12 10:28 | NUR ---
CASE MANAGEMENT DISCHARGE FOLLOW UP: T/c to pt, no answer, no VM set up. Attempt to contact pt's Urszula ORDAZ, no answer, no VM set up. Unable to contact pt for f/u interview.
== END 2020-09-08 11:04 | disposition home or self-care (01) | DRG 282 ==
LOC: ER 09:05 → SUR 3N 14:48 → EDBEDREQ 14:54 → SUR 3N 16:03
PROVIDERS: ADMIT Family Medicine; ATTEND Family Medicine
PROC: BW211ZZ Computerized Tomography (CT Scan) of Abdomen and Pelvis using Low Osmolar Contrast (ICD-10-PCS; principal; 2020-09-07)
DX: K85.20 Alcohol induced acute pancreatitis without necrosis or infection (principal); E87.6 Hypokalemia; K86.2 Cyst of pancreas; F12.10 Cannabis abuse, uncomplicated; F10.239 Alcohol dependence with withdrawal, unspecified; F17.210 Nicotine dependence, cigarettes, uncomplicated; G89.29 Other chronic pain; R19.7 Diarrhea, unspecified; Z71.41 Alcohol abuse counseling and surveillance of alcoholic; Z71.51 Drug abuse counseling and surveillance of drug abuser; Z71.6 Tobacco abuse counseling
CPT/HCPCS: 36415; 74022; 74177; 80053; 80061; 80305; 80320; 81001; 82150; 82948; 83036; 83690; 83735; 84100; 84132; 85025; 87081; 93005; 96374; 96375; 99285; C9113; G0378; J1644; J2060; J2270; J2405; J3411; J3475; J3480; J7030; J7040; Q9963; Q9967

== ENCOUNTER 2020-09-13 22:38 | Emergency (ER) | payer MEDICAID ==
[~2020-09-13] VITALS: Ht 165.1 cm; Wt 61.4 kg
[~2020-09-13 22:38] MED LIST changes: +FOLI0.4T6 PO; +GABA100C PO; -IBUP-1986 PO; -NO HOME MEDS; -OXYC-149 PO; -PROC-8 PO; +THIA100T70 PO
[2020-09-13 22:42] VITALS: BP 148/114
== END 2020-09-14 00:23 | disposition home or self-care (01) ==
LOC: ER 22:38
DX: S09.90XA Unspecified injury of head, initial encounter (principal); S16.1XXA Strain of muscle, fascia and tendon at neck level, initial encounter; F10.129 Alcohol abuse with intoxication, unspecified; G89.29 Other chronic pain; F17.210 Nicotine dependence, cigarettes, uncomplicated; F12.90 Cannabis use, unspecified, uncomplicated; Z72.89 Other problems related to lifestyle; Z79.899 Other long term (current) drug therapy; W18.30XA Fall on same level, unspecified, initial encounter; Y93.89 Activity, other specified; Y92.89 Other specified places as the place of occurrence of the external cause; Y99.8 Other external cause status; Y90.9 Presence of alcohol in blood, level not specified
CPT/HCPCS: 70450; 72125; 99285

== ENCOUNTER 2020-11-07 09:53 | Inpatient (IN) | payer MEDICAID ==
[~2020-11-07] VITALS: Ht 165.1 cm; Wt 59.1 kg
[~2020-11-07 09:53] MED LIST changes: -FOLI0.4T6 PO
[2020-11-07] MEDS ORDERED: mag hydrox/Alum hydrox/simeth 30ml oral suspension PO ONE (10:50)
[2020-11-07] MEDS ORDERED: ondansetron/PF 4mg/2ml inj IV ONE (10:50)
[2020-11-07] MEDS ORDERED: pantoprazole 40 MG vial IV ONE (10:50)
[2020-11-07] MEDS ORDERED: LIDOcaine Viscous 15ml cup MM ONE (10:50)
[2020-11-07] MEDS ORDERED: normal saline 1000ml 1,000 ML IV ONE (10:50)
[2020-11-07 11:04] LABS: BASOPHILS # (AUTO) 0.1 X10'3 (0-0.2); BASOPHILS % (AUTO) 0.7 % (0-1); EOSINOPHILS # (AUTO) 0.3 X10'3 (0-0.9); EOSINOPHILS % (AUTO) 2.4 % (0-6); HEMATOCRIT 40.7 % (42.0-52.0); HEMOGLOBIN 14.1 g/dl (14.0-17.9); LYMPHOCYTES # (AUTO) 3.9 X10'3 (1.1-4.8); LYMPHOCYTES % (AUTO) 34.4 % (21-51); MEAN CORPUSCULAR HEMOGLOBIN 34.2 PG (27.0-31.0); MEAN CORPUSCULAR HGB CONC 34.7 g/dL (33.0-36.5); MEAN CORPUSCULAR VOLUME 98.6 FL (78-98); NEUTROPHILS # (AUTO) 6.2 X10'3 (1.8-7.7); NEUTROPHILS % (AUTO) 53.5 % (42-75); PLATELET COUNT 782 X10'3 (140-440); RED BLOOD COUNT 4.13 X10'6 (4.70-6.10); RED CELL DISTRIBUTION WIDTH 13.4 % (11.5-14.5); WHITE BLOOD COUNT 11.5 X10'3 (4.5-11.0)
[2020-11-07 11:22] LABS: ALANINE AMINOTRANSFERASE 76 U/L (12-78); ALBUMIN 2.8 G/DL (3.4-5.0); ALBUMIN/GLOBULIN RATIO 0.6 (1.1-1.5); ALKALINE PHOSPHATASE 108 IU/L (46-116); AMYLASE 144 U/L (25-115); BILIRUBIN,TOTAL 0.3 MG/DL (0.1-1.0); BLOOD UREA NITROGEN 4 MG/DL (7-18); BUN/CREATININE RATIO 4.2 (5.4-32.0); CALCIUM 7.9 MG/DL (8.5-10.1); CHLORIDE 99 MMOL/L (99-107); CREATININE 0.96 MG/DL (0.60-1.10); GLUCOSE 93 MG/DL (70-104); LIPASE 625 U/L (73-393); TOTAL PROTEIN 7.3 G/DL (6.4-8.2); eGFR 90 ML/MIN
[2020-11-07 11:27] LABS: ANION GAP 2 (8-16); ASPARTATE AMINO TRANSFERASE 67 U/L (10-37); SODIUM 142 MMOL/L (135-145)
[2020-11-07 11:34] LABS: PLATELET ESTIMATE INCREASED
[2020-11-07 11:44] LABS: POTASSIUM 2.5 MMOL/L (3.5-5.1); TOTAL CARBON DIOXIDE 41.4 MMOL/L (24-32)
[2020-11-07] MEDS ORDERED: POTASSIUM BICARB 20meq eff tab 20 MEQ TABLET.EFF PO ONE ×2 (12:05)
[2020-11-07] MEDS ORDERED: potassium Cl 10 mEq/100mL bag IV ONE (12:05)
[2020-11-07] MEDS ORDERED: morphine 4 MG/ML inj SYRINge IV ONE ×2 (12:15→13:40)
[2020-11-07] MEDS ORDERED: iohexol 300mg/ml 100ml inj. ONE (12:16)
[2020-11-07 12:30] LABS: MAGNESIUM 2.1 MG/DL (1.5-2.4)
[2020-11-07 13:03] LABS: CLARITY,URINE CLEAR (Clear); COLOR,URINE STRAW (Yellow); GLUCOSE, URINE NEGATIVE (Neg); KETONES,URINE NEGATIVE (Neg); LEUKOCYTE ESTERASE ,URINE NEGATIVE (Neg); NITRITES, URINE NEGATIVE (Neg); OCCULT BLOOD,URINE NEGATIVE (Neg); PH,URINE 6.5 (4.8-8.0); PROTEIN,URINE NEGATIVE (Neg); UROBILINOGEN,URINE 0.2 E.U/dL (0.2-1.0)
[2020-11-07 13:12] LABS: UA COLLECTION TYPE URINAL
[2020-11-07 13:48] LABS: ABG BASE EXCESS 9.8 mmol/L (-2.0-2.0); ABG HCO3 34.5 mmol/L (22.0-26.0); ABG OXYGEN SATURATION 91.8 % (94-97); ABG PCO2 (T) 45.7 mmHg (35.0-48.0); ABG PO2 (T) 60.8 mmHg (75.0-100.0); ALLEN'S TEST POSITIVE; FMetHb 0.1 % (0.0-1.5); FO2Hb 84.4 % (94-97); PATIENT TEMPERATURE 36.5
[2020-11-07] MEDS ORDERED: [UNRECOGNIZED DRUG - OTHER] PO (15:59)
[2020-11-07 16:10] LABS: ETHANOL 0.331 GM/DL (0.0-0.010)
[2020-11-07] MEDS ORDERED: magnesium hydroxide 30ml (MOM) UD suspension PO PRN (16:30)
[2020-11-07] MEDS ORDERED: magnesium Cl slow-release 64mg tablet PO PRN (16:30)
[2020-11-07] MEDS ORDERED: potassium Cl 20 mEq SR tablet PO PRN (16:30)
[2020-11-07] MEDS ORDERED: magnesium 4gm in 100ml NS 100 ML IV PRN (16:30)
[2020-11-07] MEDS ORDERED: morphine 2 MG/ML inj. syringe IV PRN (16:30)
[2020-11-07] MEDS ORDERED: HYDROcodone/acetaminophen 5mg/325mg tablet PO PRN (16:30)
[2020-11-07] MEDS ORDERED: magnesium 2GM in 50ml NS 50 ML IV PRN (16:30)
[2020-11-07] MEDS ORDERED: acetaminophen 325mg tablet PO PRN ×2 (16:30)
[2020-11-07] MEDS ORDERED: mag hydrox/Alum hydrox/simeth 30ml oral suspension PO PRN (16:30)
[2020-11-07] MEDS ORDERED: potassium Cl 40MEQ/1/2NS 520ml 520 ML IV PRN (16:30)
[2020-11-07] MEDS ORDERED: ondansetron/PF 4mg/2ml inj IV PRN (16:30)
[2020-11-07 16:32] LABS: URINE AMPHETAMINE SCREEN NEGATIVE (Neg); URINE BARBITUATE SCREEN NEGATIVE (Neg); URINE BENZODIAZEPINES SCREEN NEGATIVE (Neg); URINE CANNABINOID SCREEN POSITIVE (Neg); URINE COCAINE SCREEN NEGATIVE (Neg); URINE METHADONE SCREEN NEGATIVE (Neg); URINE OPIATE SCREEN NEGATIVE (Neg); URINE PHENCYCLIDINE SCREEN NEGATIVE (Neg)
[2020-11-07] MEDS: normal saline 1000ml 1,000 ML IV SCH ×2 (17:09→20:01)
[2020-11-07] MEDS: HYDROmorphone inj. 0.5 MG/0.5 ML DISP.SYRIN IV PRN ×2 (17:10→22:33)
[2020-11-07] MEDS: LORazepam 2 mg/ml vial IV PRN ×2 (18:00→23:30)
[2020-11-07] MEDS: heparin, porcine 5000 units/ml vial SQ SCH (20:00)
[2020-11-07] MEDS: K and/or MAG REPLACEMENT MC SCH (20:00)
[2020-11-07] MEDS: potassium Cl 20 mEq SR tablet PO PRN (20:30)
[2020-11-07] MEDS ORDERED: temazepam 15mg capsule PO PRN (21:00)
[2020-11-08] MEDS: normal saline 1000ml 1,000 ML IV SCH ×4 (00:15→18:07)
[2020-11-08] MEDS: potassium Cl 20 mEq SR tablet PO PRN (01:06)
[2020-11-08] MEDS: HYDROmorphone inj. 0.5 MG/0.5 ML DISP.SYRIN IV PRN ×3 (02:04→18:06)
--- NOTE | 2020-11-08 02:18 | NUR ---
PT AWAITING IPA AND IS ON HOSPITAL BED. PT SLEEPING INTERMITTENTLY. REPORTS PAIN TO L ABD WHEN AWAKE, NOW 7 OUT OF 10. JUST GIVEN DILAUDID 0.5 MG IV. PLACED ON 2 LITERS O2 SATS DROPPING TO 90% WHILE SLEEPING.
[2020-11-08 04:12] LABS: BASOPHILS # (AUTO) 0.1 X10'3 (0-0.2); EOSINOPHILS # (AUTO) 0.1 X10'3 (0-0.9); EOSINOPHILS % (AUTO) 1.7 % (0-6); HEMATOCRIT 31.2 % (42.0-52.0); HEMOGLOBIN 10.8 g/dl (14.0-17.9); LYMPHOCYTES # (AUTO) 2.2 X10'3 (1.1-4.8); LYMPHOCYTES % (AUTO) 28.6 % (21-51); MEAN CORPUSCULAR HEMOGLOBIN 34.1 PG (27.0-31.0); MEAN CORPUSCULAR HGB CONC 34.5 g/dL (33.0-36.5); MEAN CORPUSCULAR VOLUME 98.8 FL (78-98); MONOCYTES # (AUTO) 0.6 X10'3 (0-0.9); MONOCYTES % (AUTO) 7.6 % (2-12); NEUTROPHILS # (AUTO) 4.6 X10'3 (1.8-7.7); NEUTROPHILS % (AUTO) 61.1 % (42-75); PLATELET COUNT 441 X10'3 (140-440); RED BLOOD COUNT 3.15 X10'6 (4.70-6.10); RED CELL DISTRIBUTION WIDTH 13.2 % (11.5-14.5); WHITE BLOOD COUNT 7.6 X10'3 (4.5-11.0)
[2020-11-08] MEDS: HYDROcodone/acetaminophen 10/325mg tab PO PRN ×2 (04:19→13:13)
[2020-11-08 04:30] LABS: TROPONIN I < 0.04 NG/ML (0.0-0.05)
[2020-11-08 05:39] LABS: ALANINE AMINOTRANSFERASE 44 U/L (12-78); ALBUMIN 1.8 G/DL (3.4-5.0); ALBUMIN/GLOBULIN RATIO 0.5 (1.1-1.5); ALKALINE PHOSPHATASE 93 IU/L (46-116); ANION GAP 7 (8-16); ASPARTATE AMINO TRANSFERASE 36 U/L (10-37); BILIRUBIN,TOTAL 0.3 MG/DL (0.1-1.0); BLOOD UREA NITROGEN 4 MG/DL (7-18); BUN/CREATININE RATIO 6.2 (5.4-32.0); CALCIUM 6.4 MG/DL (8.5-10.1); CHLORIDE 110 MMOL/L (99-107); CHOL/HDL RATIO 2.8 (0.00-4.99); CHOLESTEROL 73 MG/DL (0-200); CREATININE 0.65 MG/DL (0.60-1.10); GLUCOSE 71 MG/DL (70-104); HDL CHOLESTEROL 26 MG/DL (35-60); LDL CHOLESTEROL 35 MG/DL (50-100); MAGNESIUM 1.5 MG/DL (1.5-2.4); SODIUM 146 MMOL/L (135-145); TOTAL CARBON DIOXIDE 28.6 MMOL/L (24-32); TOTAL PROTEIN 5.1 G/DL (6.4-8.2); TRIGLYCERIDES 36 MG/DL (20-135); eGFR > 90 ML/MIN
[2020-11-08 05:43] LABS: POTASSIUM 2.7 MMOL/L (3.5-5.1)
--- NOTE | 2020-11-08 05:44 | NUR ---
K now 2.7 (0400 draw). Pt has received K 10 meq ivpb, and 2 doses of kdur 40 meq. Next PO dose due at 0700 per K replacement protocol.
--- NOTE | 2020-11-08 07:15 | NUR ---
Called pharmacy to prepare IV potassium replacement as pt is NPO.
[2020-11-08] MEDS: atenolol 50mg tablet PO SCH (07:58)
[2020-11-08] MEDS: K and/or MAG REPLACEMENT MC SCH ×2 (07:58→20:00)
[2020-11-08] MEDS: heparin, porcine 5000 units/ml vial SQ SCH ×2 (08:00→20:50)
[2020-11-08] MEDS: pantoprazole 40 MG vial IV SCH (08:14)
[2020-11-08] MEDS: potassium Cl 40MEQ/1/2NS 520ml 520 ML IV PRN (08:15)
[2020-11-08] MEDS: nicotine 14mg patch - 24hr TD SCH (08:24)
[2020-11-08] MEDS: LORazepam 2 mg/ml vial IV PRN ×3 (08:24→20:49)
[2020-11-08 08:59] LABS: BASOPHILS # (AUTO) 0.1 X10'3 (0-0.2); BASOPHILS % (AUTO) 0.6 % (0-1); EOSINOPHILS # (AUTO) 0.1 X10'3 (0-0.9); EOSINOPHILS % (AUTO) 1.7 % (0-6); HEMATOCRIT 35.8 % (42.0-52.0); HEMOGLOBIN 12.2 g/dl (14.0-17.9); LYMPHOCYTES # (AUTO) 2.3 X10'3 (1.1-4.8); MEAN CORPUSCULAR HEMOGLOBIN 34.2 PG (27.0-31.0); MEAN CORPUSCULAR VOLUME 100.5 FL (78-98); MEAN PLATELET VOLUME 7.3 FL (7.4-10.4); MONOCYTES # (AUTO) 0.6 X10'3 (0-0.9); MONOCYTES % (AUTO) 6.7 % (2-12); NEUTROPHILS # (AUTO) 5.3 X10'3 (1.8-7.7); PLATELET COUNT 480 X10'3 (140-440); RED BLOOD COUNT 3.56 X10'6 (4.70-6.10); WHITE BLOOD COUNT 8.3 X10'3 (4.5-11.0)
[2020-11-08 09:20] LABS: POTASSIUM 3.1 MMOL/L (3.5-5.1)
--- NOTE | 2020-11-08 10:20 | NUR ---
assumed care of pt from Karen BURTON
--- NOTE | 2020-11-08 12:09 | NUR ---
pt is sleeping, resp even and unlabored,
--- NOTE | 2020-11-08 13:21 | NUR ---
pt awake, asking for pain medication, medicated per MD order, pt genaro PO norco well, no n/v, c/o "pancreatic pain...sharp for 5 minutes...it grabs you and then lets go"
[2020-11-08] MEDS: morphine 2 MG/ML inj. syringe IV PRN ×2 (15:27→20:49)
--- NOTE | 2020-11-08 15:31 | NUR ---
pt continues to rest quietly on hospital bed, c/o RUQ abd pain 12/03, medicated per order, IV site is patent and clear
--- NOTE | 2020-11-08 15:48 | NUR ---
REPORT CALLED TO RN FOR [id number]
--- NOTE | 2020-11-08 15:54 | NUR ---
Patient in room ED 12. I have received report from rosie BURTON and had the opportunity to ask questions and awaiting patients arrival.
--- NOTE | 2020-11-08 17:09 | NUR ---
patient anxious and painful on admit to floor.tivan 2mg administered with effect.Patient has IV fluids NS@200mls/hr. Commenced on Tele SR `80's skin intact pain in right side of abdomen. will continue to monitor.
[2020-11-08] MEDS ORDERED: glucagon, human recombinant 1mg kit SUBCUT PRN (17:50)
[2020-11-08] MEDS ORDERED: insulin Lispro (HumaLOG) vial - multi-dose SQ SCH (17:50)
[2020-11-08] MEDS ORDERED: dextrose 50%-water 50ml dispensing syringe IV PRN ×2 (17:50)
[2020-11-08] MEDS ORDERED: MESSAGE TO PHARMACY PO ONE (17:50)
[2020-11-08] MEDS ORDERED: dextrose ORAL solution 15 GM/59 ML bottle PO PRN ×2 (17:50)
--- NOTE | 2020-11-08 18:25 | NUR ---
Patient in room [facility]TH[facility] 4010. I have received report from MICHEAL Temple and had the opportunity to ask questions and assume patient care.
--- NOTE | 2020-11-08 18:50 | NUR ---
Blood sugar 68 dr bose made aware placed on protocol 25mls dex administered with good result BS 119. patient given dilaudid as still painful. up ambulating . report given to Jonn BURTON
[2020-11-08] MEDS ORDERED: insulin glargine (Lantus) pen - multi-dose SQ SCH (21:00)
[2020-11-08] MEDS: dextrose 5%-1/2 normal saline 1,000 ML IV SCH (21:58)
[2020-11-08 22:00] VITALS: BP 143/91
[2020-11-09] MEDS: morphine 2 MG/ML inj. syringe IV PRN ×4 (01:11→15:29)
[2020-11-09] MEDS: LORazepam 2 mg/ml vial IV PRN ×5 (01:11→14:10)
[2020-11-09] MEDS: dextrose 5%-1/2 normal saline 1,000 ML IV SCH ×3 (02:59→12:50)
[2020-11-09 06:00] VITALS: BP 130/78
[2020-11-09 06:35] LABS: BASOPHILS # (AUTO) 0.1 X10'3 (0-0.2); BASOPHILS % (AUTO) 0.7 % (0-1); EOSINOPHILS # (AUTO) 0.2 X10'3 (0-0.9); EOSINOPHILS % (AUTO) 2.2 % (0-6); HEMATOCRIT 34.4 % (42.0-52.0); LYMPHOCYTES # (AUTO) 1.6 X10'3 (1.1-4.8); LYMPHOCYTES % (AUTO) 16.6 % (21-51); MEAN CORPUSCULAR HEMOGLOBIN 34.6 PG (27.0-31.0); MEAN CORPUSCULAR HGB CONC 34.9 g/dL (33.0-36.5); MEAN PLATELET VOLUME 7.4 FL (7.4-10.4); MONOCYTES # (AUTO) 0.5 X10'3 (0-0.9); MONOCYTES % (AUTO) 5.4 % (2-12); NEUTROPHILS # (AUTO) 7.2 X10'3 (1.8-7.7); NEUTROPHILS % (AUTO) 75.1 % (42-75); PLATELET COUNT 434 X10'3 (140-440); RED BLOOD COUNT 3.47 X10'6 (4.70-6.10); RED CELL DISTRIBUTION WIDTH 13.1 % (11.5-14.5); WHITE BLOOD COUNT 9.7 X10'3 (4.5-11.0)
--- NOTE | 2020-11-09 06:46 | NUR ---
Problems reprioritized. Patient report given, questions answered & plan of care reviewed with MICHEAL Bella.
[2020-11-09 06:48] LABS: ALANINE AMINOTRANSFERASE 42 U/L (12-78); ALBUMIN 1.9 G/DL (3.4-5.0); ALBUMIN/GLOBULIN RATIO 0.5 (1.1-1.5); ALKALINE PHOSPHATASE 95 IU/L (46-116); ANION GAP 7 (8-16); ASPARTATE AMINO TRANSFERASE 32 U/L (10-37); BILIRUBIN,TOTAL 0.5 MG/DL (0.1-1.0); BLOOD UREA NITROGEN 3 MG/DL (7-18); BUN/CREATININE RATIO 4.2 (5.4-32.0); CALCIUM 7.4 MG/DL (8.5-10.1); CHLORIDE 105 MMOL/L (99-107); CREATININE 0.72 MG/DL (0.60-1.10); GLUCOSE 131 MG/DL (70-104); MAGNESIUM 1.6 MG/DL (1.5-2.4); SODIUM 141 MMOL/L (135-145); TOTAL CARBON DIOXIDE 29.5 MMOL/L (24-32); TOTAL PROTEIN 5.4 G/DL (6.4-8.2); eGFR > 90 ML/MIN
--- NOTE | 2020-11-09 06:53 | NUR ---
Patient in room [facility]TH[facility] 4010. I have received report from MICHEAL STEPHENS, and had the opportunity to ask questions and assume patient care.
[2020-11-09 07:23] LABS: POTASSIUM 2.9 MMOL/L (3.5-5.1)
--- NOTE | 2020-11-09 07:29 | NUR ---
Critical K 2.[address] Campuzano PAGER ID: [phone] MESSAGE: Room 4010A. Junior Covarrubias. Critical K 2.9. Thanks, Josseline [phone]
--- NOTE | 2020-11-09 07:32 | NUR ---
Per re: K 2.9 Give 40MEq k-dur PO NOW and continue with protocol.
[2020-11-09] MEDS ORDERED: potassium Cl 20 mEq SR tablet PO STA (07:33)
[2020-11-09] MEDS: K and/or MAG REPLACEMENT MC SCH (08:00)
[2020-11-09] MEDS: HYDROcodone/acetaminophen 10/325mg tab PO PRN ×2 (08:51→14:10)
[2020-11-09] MEDS: pantoprazole 40 MG vial IV SCH (08:55)
[2020-11-09] MEDS: heparin, porcine 5000 units/ml vial SQ SCH (08:55)
[2020-11-09] MEDS: nicotine 14mg patch - 24hr TD SCH (08:56)
[2020-11-09] MEDS: atenolol 50mg tablet PO SCH (08:58)
[2020-11-09] MEDS: potassium Cl 40MEQ/1/2NS 520ml 520 ML IV PRN ×2 (10:41→15:30)
[2020-11-09 11:00] VITALS: BP 130/85
--- NOTE | 2020-11-09 14:17 | NUR ---
1400 bloodsugar check refused by patient
--- NOTE | 2020-11-09 14:24 | NUR ---
Paged Dr Louis PAGER ID: [phone] MESSAGE: Room 4010A. Junior Covarrubias. Episode of HR 48 at 0040 11/09. On 50mg atenolol. FYI. Manjarrez [phone] Addendum: 11/09/20 at 1424 by Josseline Santillan RN Correction, Paged Md Campuzano.
[2020-11-09] MEDS ORDERED: SERT-432 PO (15:26)
[2020-11-09] MEDS ORDERED: NICO-631 TD (15:26)
[2020-11-09] MEDS ORDERED: MULT-1074 PO (15:26)
[2020-11-09] MEDS ORDERED: PANT40TA54 PO (15:26)
[2020-11-09] MEDS ORDERED: THIA100T66 PO (15:26)
[2020-11-09] MEDS ORDERED: FOLI0.4T6 PO (15:26)
[2020-11-09] MEDS ORDERED: ACET-1008 PO (16:22)
[2020-11-09] MEDS ORDERED: LORazepam 2 mg/ml vial IV PRN (16:30)
[2020-11-09] MEDS ORDERED: LORazepam 1 MG tablet PO PRN (16:30)
[2020-11-09] MEDS ORDERED: POTA20TA10 PO (16:33)
--- NOTE | 2020-11-09 17:17 | NUR ---
Paged Dr Campuzano PAGER ID: [phone] MESSAGE: Room 4010, Junior Covarrubias. Alla 4.3. Pt is being D/c'd. Thanks, Josseline [phone]
--- NOTE | 2020-11-09 17:35 | NUR ---
DISCHARGE ORDERS REVIEWED WITH PT. PT GIVEN OPPORTUNITY TO ASK QUESTIONS. DISCHARGE PAPERWORK SIGNED. PRESCRIPTIONS SENT TO [facility] IN [place]. PIV REMOVED WITH TIP INTACT, PROCEDURE TOLERATED WELL BY PT. TELE BOX REMOVED FROM PT. PT VERBALIZED THAT HE WOULD BE PAYING FOR A CAB TO TAKE HIM TO HIS HOME, THE PT WAS TO WAIT IN THE HOSPITAL LOBBY AND THE CAB WAS GOING TO PHONE THE PT WHEN THEY ARRIVED. PT STABLE FOR DISCHARGE PER MD.
[2020-11-11] MEDS ORDERED: LORazepam 2 mg/ml vial IV PRN (16:30)
[2020-11-11] MEDS ORDERED: LORazepam 1 MG tablet PO PRN (16:30)
== END 2020-11-09 17:20 | disposition home or self-care (01) | DRG 282 ==
LOC: ER 09:54 → ED HOLD 16:26 → ORTHO 4S 11-08 16:13
PROVIDERS: ADMIT Internal Medicine; ATTEND Internal Medicine
PROC: BW211ZZ Computerized Tomography (CT Scan) of Abdomen and Pelvis using Low Osmolar Contrast (ICD-10-PCS; principal; 2020-11-07)
DX: K85.20 Alcohol induced acute pancreatitis without necrosis or infection (principal); D72.828 Other elevated white blood cell count; E87.6 Hypokalemia; F10.20 Alcohol dependence, uncomplicated; F12.10 Cannabis abuse, uncomplicated; F17.210 Nicotine dependence, cigarettes, uncomplicated; F41.9 Anxiety disorder, unspecified; K86.1 Other chronic pancreatitis; G89.29 Other chronic pain; Z71.41 Alcohol abuse counseling and surveillance of alcoholic
CPT/HCPCS: 36415; 36600; 71046; 74177; 80053; 80061; 80305; 80320; 81003; 82150; 82803; 82948; 83036; 83605; 83690; 83735; 84132; 84484; 85008; 85018; 85025; 85610; 87040; 87081; 93005; 96365; 96375; 96376; 99285; C9113; G0378; J1170; J1644; J1815; J2060; J2270; J2405; J3480; J7030; Q9967

== ENCOUNTER 2021-02-09 19:34 | Emergency (ER) | payer MEDICAID ==
[~2021-02-09] VITALS: Ht 162.6 cm; Wt 60.0 kg
[~2021-02-09 19:34] MED LIST changes: -GABA100C PO; +MULT-1074 PO; +NICO-631 TD; +PANT40TA54 PO; +POTA-197 PO; +SERT-432 PO; +THIA100T66 PO; -THIA100T70 PO
[2021-02-09] MEDS ORDERED: normal saline 1000ML IV soln IVB ONE (20:40)
[2021-02-09] MEDS ORDERED: ondansetron/PF 4mg/2ml inj IV ONE (20:40)
[2021-02-09 20:56] LABS: LYMPHOCYTES # (AUTO) 4.2 X10'3 (1.1-4.8); MONOCYTES # (AUTO) 0.6 X10'3 (0-0.9); RED BLOOD COUNT 4.26 X10'6 (4.70-6.10)
[2021-02-09 20:58] LABS: BASOPHILS % (AUTO) 0.5 % (0-1); EOSINOPHILS # (AUTO) 0.1 X10'3 (0-0.9); EOSINOPHILS % (AUTO) 1.6 % (0-6); HEMATOCRIT 42.3 % (42.0-52.0); HEMOGLOBIN 14.8 g/dl (14.0-17.9); LYMPHOCYTES % (AUTO) 50.4 % (21-51); MEAN CORPUSCULAR HEMOGLOBIN 34.8 PG (27.0-31.0); MEAN CORPUSCULAR VOLUME 99.4 FL (78-98); MONOCYTES % (AUTO) 7.2 % (2-12); NEUTROPHILS # (AUTO) 3.4 X10'3 (1.8-7.7); NEUTROPHILS % (AUTO) 40.3 % (42-75); PLATELET COUNT 174 X10'3 (140-440); RED CELL DISTRIBUTION WIDTH 14.8 % (11.5-14.5); WHITE BLOOD COUNT 8.4 X10'3 (4.5-11.0)
[2021-02-09 21:27] LABS: ALANINE AMINOTRANSFERASE 137 U/L (12-78); ALBUMIN/GLOBULIN RATIO 0.9 (1.1-1.5); ALKALINE PHOSPHATASE 132 IU/L (46-116); ANION GAP 4 (8-16); ASPARTATE AMINO TRANSFERASE 112 U/L (10-37); BILIRUBIN,TOTAL 0.4 MG/DL (0.1-1.0); BLOOD UREA NITROGEN 5 MG/DL (7-18); BUN/CREATININE RATIO 5.7 (5.4-32.0); CALCIUM 7.8 MG/DL (8.5-10.1); CHLORIDE 106 MMOL/L (99-107); CREATININE 0.87 MG/DL (0.60-1.10); GLUCOSE 114 MG/DL (70-104); LIPASE 409 U/L (73-393); SODIUM 144 MMOL/L (135-145); TOTAL CARBON DIOXIDE 33.7 MMOL/L (24-32); TOTAL PROTEIN 6.5 G/DL (6.4-8.2); eGFR > 90 ML/MIN
[2021-02-09 21:50] LABS: POTASSIUM 2.7 MMOL/L (3.5-5.1)
[2021-02-09] MEDS ORDERED: potassium Cl 20 mEq SR tablet PO ONE (21:50)
[2021-02-09] MEDS ORDERED: famotidine/PF 10 mg/ml inj IV ONE (21:50)
[2021-02-09] MEDS ORDERED: potassium Cl 10 mEq/100mL bag IV ONE (21:50)
[2021-02-09] MEDS ORDERED: magnesium 2GM in 50ml NS 50 ML IV ONE (21:50)
[2021-02-09] MEDS ORDERED: NAPR-56 PO (22:14)
[2021-02-09] MEDS ORDERED: TRAM50TA2 PO (22:14)
[2021-02-09] MEDS ORDERED: ONDA4TAB6 PO (22:14)
[2021-02-09] MEDS ORDERED: oxyCODONE/APAP 10/325mg tablet PO ONE (22:20)
[2021-02-09 23:32] VITALS: BP 108/74
== END 2021-02-09 23:36 | disposition home or self-care (01) ==
LOC: ER 19:36
DX: K85.90 Acute pancreatitis without necrosis or infection, unspecified (principal); F10.929 Alcohol use, unspecified with intoxication, unspecified; E87.6 Hypokalemia; E86.0 Dehydration
CPT/HCPCS: 36415; 80053; 80320; 83690; 85025; 96365; 96368; 96375; 99284; J2405; J3475; J3480; J7030

== ENCOUNTER 2021-04-06 16:16 | Emergency (ER) | payer MEDICAID ==
[~2021-04-06] VITALS: Ht 165.1 cm; Wt 59.1 kg
[~2021-04-06 16:16] MED LIST changes: +ONDA4TAB6 PO
[2021-04-06 17:01] LABS: BASOPHILS # (AUTO) 0.1 X10'3 (0-0.2); BASOPHILS % (AUTO) 0.7 % (0-1); EOSINOPHILS % (AUTO) 0.1 % (0-6); HEMOGLOBIN 16.4 g/dl (14.0-17.9); LYMPHOCYTES # (AUTO) 2.5 X10'3 (1.1-4.8); LYMPHOCYTES % (AUTO) 22.8 % (21-51); MEAN CORPUSCULAR HGB CONC 34.3 g/dL (33.0-36.5); MEAN CORPUSCULAR VOLUME 99.1 FL (78-98); MEAN PLATELET VOLUME 8.9 FL (7.4-10.4); MONOCYTES # (AUTO) 0.8 X10'3 (0-0.9); MONOCYTES % (AUTO) 7.5 % (2-12); NEUTROPHILS # (AUTO) 7.5 X10'3 (1.8-7.7); NEUTROPHILS % (AUTO) 68.9 % (42-75); PLATELET COUNT 239 X10'3 (140-440); RED BLOOD COUNT 4.84 X10'6 (4.70-6.10); RED CELL DISTRIBUTION WIDTH 14.5 % (11.5-14.5); WHITE BLOOD COUNT 10.9 X10'3 (4.5-11.0)
[2021-04-06 17:19] LABS: ALANINE AMINOTRANSFERASE 56 U/L (12-78); ALBUMIN 3.5 G/DL (3.4-5.0); ALBUMIN/GLOBULIN RATIO 0.8 (1.1-1.5); ALKALINE PHOSPHATASE 180 IU/L (46-116); ANION GAP 11 (8-16); ASPARTATE AMINO TRANSFERASE 59 U/L (10-37); BILIRUBIN,TOTAL 2.3 MG/DL (0.1-1.0); BLOOD UREA NITROGEN 18 MG/DL (7-18); BUN/CREATININE RATIO 12.8 (5.4-32.0); CHLORIDE 98 MMOL/L (99-107); CREATININE 1.41 MG/DL (0.60-1.10); GLUCOSE 171 MG/DL (70-104); LIPASE 166 U/L (73-393); POTASSIUM 3.5 MMOL/L (3.5-5.1); SODIUM 140 MMOL/L (135-145); TOTAL PROTEIN 7.8 G/DL (6.4-8.2); eGFR 58 ML/MIN
[2021-04-06 17:42] LABS: CLARITY,URINE SLIGHTLY CLOUDY (Clear)
[2021-04-06] MEDS ORDERED: ondansetron/PF 4mg/2ml inj IV ONE (17:45)
[2021-04-06] MEDS ORDERED: famotidine/PF 10 mg/ml inj IV ONE (17:45)
[2021-04-06] MEDS ORDERED: normal saline 1000ML IV soln IVB ONE (17:45)
[2021-04-06 17:47] LABS: COLOR,URINE AMBER (Yellow); UA COLLECTION TYPE CLN CATCH MIDSTREAM
[2021-04-06] MEDS ORDERED: ketorolac trometh. 30mg/ml inj. IV ONE (17:50)
[2021-04-06 17:51] LABS: BACTERIA,URINE FEW /HPF (Neg); FINE GRANULAR CAST 0-3 /LPF (NEGATIVE); MUCUS STRANDS MANY /LPF (Neg); RBC,URINE NONE SEEN /HPF (0-2); SPERM FEW /HPF (NEGATIVE); SQUAMOUS EPITHELIAL CELL,UR FEW /LPF (FEW); WBC,URINE 0-4 /HPF (0-4)
[2021-04-06] MEDS ORDERED: sucralfate 1gm/10ml UD suspension PO STA (17:59)
[2021-04-06] MEDS ORDERED: mag hydrox/Alum hydrox/simeth 30ml oral suspension PO ONE (18:00)
[2021-04-06] MEDS ORDERED: LIDOcaine Viscous 15ml cup MM ONE (18:00)
[2021-04-06] MEDS ORDERED: metoclopramide 5 mg/ml inj IV ONE (18:00)
[2021-04-06] MEDS ORDERED: sucralfate 1 gm tablet PO STA (18:02)
[2021-04-06] MEDS ORDERED: morphine 4 MG/ML inj SYRINge IV ONE (19:15)
[2021-04-06] MEDS ORDERED: PANT-47 PO (19:54)
[2021-04-06] MEDS ORDERED: SUCR1TAB34 PO (19:56)
[2021-04-06 20:18] VITALS: BP 121/89
== END 2021-04-06 20:21 | disposition home or self-care (01) ==
LOC: ER 16:16
DX: K29.20 Alcoholic gastritis without bleeding (principal); F12.10 Cannabis abuse, uncomplicated; Z87.19 Personal history of other diseases of the digestive system; Z87.898 Personal history of other specified conditions
CPT/HCPCS: 36415; 76700; 80053; 81001; 83690; 85025; 96361; 96374; 96375; 99284; J1885; J2270; J2405; J2765; J3490; J7030

== ENCOUNTER 2021-04-11 05:22 | Emergency (ER) | payer MEDICAID ==
[~2021-04-11] VITALS: Ht 165.1 cm; Wt 51.6 kg
[~2021-04-11 05:22] MED LIST changes: +PANT-47 PO; +SUCR1TAB34 PO
--- NOTE | 2021-04-11 06:20 | NUR ---
PATIENT MOVED TO [facility], R/0 COVID 19.
--- NOTE | 2021-04-11 09:05 | NUR ---
Patient requests pain med for epigastric pain 02/02; provider notified.
[2021-04-11 09:28] LABS: BASOPHILS % (AUTO) 0.6 % (0-1); EOSINOPHILS # (AUTO) 0.1 X10'3 (0-0.9); EOSINOPHILS % (AUTO) 1.7 % (0-6); HEMOGLOBIN 15.1 g/dl (14.0-17.9); LYMPHOCYTES # (AUTO) 3.1 X10'3 (1.1-4.8); LYMPHOCYTES % (AUTO) 42.3 % (21-51); MEAN CORPUSCULAR HEMOGLOBIN 34.2 PG (27.0-31.0); MEAN CORPUSCULAR HGB CONC 34.3 g/dL (33.0-36.5); MEAN CORPUSCULAR VOLUME 99.9 FL (78-98); MEAN PLATELET VOLUME 8.3 FL (7.4-10.4); MONOCYTES # (AUTO) 0.5 X10'3 (0-0.9); MONOCYTES % (AUTO) 7.2 % (2-12); NEUTROPHILS # (AUTO) 3.6 X10'3 (1.8-7.7); NEUTROPHILS % (AUTO) 48.2 % (42-75); PLATELET COUNT 226 X10'3 (140-440); RED CELL DISTRIBUTION WIDTH 14.7 % (11.5-14.5); WHITE BLOOD COUNT 7.4 X10'3 (4.5-11.0)
[2021-04-11 09:42] LABS: ALANINE AMINOTRANSFERASE 92 U/L (12-78); ALBUMIN 2.9 G/DL (3.4-5.0); ALBUMIN/GLOBULIN RATIO 0.7 (1.1-1.5); ALKALINE PHOSPHATASE 160 IU/L (46-116); ANION GAP 8 (8-16); ASPARTATE AMINO TRANSFERASE 109 U/L (10-37); BILIRUBIN,TOTAL 0.4 MG/DL (0.1-1.0); BLOOD UREA NITROGEN 3 MG/DL (7-18); BUN/CREATININE RATIO 4.3 (5.4-32.0); CHLORIDE 106 MMOL/L (99-107); CREATININE 0.69 MG/DL (0.60-1.10); ETHANOL 0.296 GM/DL (0.0-0.010); GLUCOSE 117 MG/DL (70-104); LIPASE 187 U/L (73-393); POTASSIUM 3.9 MMOL/L (3.5-5.1); SODIUM 145 MMOL/L (135-145); TOTAL CARBON DIOXIDE 30.7 MMOL/L (24-32); TOTAL PROTEIN 6.9 G/DL (6.4-8.2); eGFR > 90 ML/MIN
[2021-04-11 10:34] VITALS: BP 116/89
== END 2021-04-11 10:40 | disposition home or self-care (01) ==
LOC: ER 05:22
DX: F10.129 Alcohol abuse with intoxication, unspecified (principal); Z20.822 Contact with and (suspected) exposure to COVID-19; K29.20 Alcoholic gastritis without bleeding; R43.8 Other disturbances of smell and taste; R53.83 Other fatigue; R10.13 Epigastric pain; R50.9 Fever, unspecified; R51.9 Headache, unspecified; J02.9 Acute pharyngitis, unspecified; G89.29 Other chronic pain; F12.90 Cannabis use, unspecified, uncomplicated; Z79.899 Other long term (current) drug therapy; Z72.89 Other problems related to lifestyle; Y90.0 Blood alcohol level of less than 20 mg/100 ml
CPT/HCPCS: 36415; 71045; 80053; 80320; 83690; 83880; 84484; 85025; 87635; 93005; 99285; C9803

== ENCOUNTER 2021-07-20 09:05 | Emergency (ER) | payer MEDICAID ==
[~2021-07-20] VITALS: Ht 165.1 cm; Wt 59.1 kg
[2021-07-20] MEDS ORDERED: normal saline 1000ML IV soln IVB ONE (09:25)
[2021-07-20] MEDS ORDERED: ondansetron/PF 4mg/2ml inj IV ONE (09:25)
[2021-07-20] MEDS ORDERED: LORazepam 2 mg/ml vial IV ONE ×2 (09:25→09:50)
[2021-07-20] MEDS ORDERED: morphine 4 MG/ML inj SYRINge IV ONE (09:25)
[2021-07-20] MEDS ORDERED: magnesium 2GM in 50ml NS 50 ML IV ONE (09:30)
[2021-07-20] MEDS ORDERED: thiamine 100mg/ml 2ml inj. IV ONE (09:30)
[2021-07-20] MEDS ORDERED: folic acid 1mg/0.2ml inj IV ONE (09:30)
[2021-07-20 09:49] LABS: BASOPHILS # (AUTO) 0.1 X10'3 (0-0.2); BASOPHILS % (AUTO) 0.5 % (0-1); EOSINOPHILS % (AUTO) 0 % (0-6); HEMOGLOBIN 15.1 g/dl (14.0-17.9); LYMPHOCYTES # (AUTO) 1.4 X10'3 (1.1-4.8); LYMPHOCYTES % (AUTO) 13.7 % (21-51); MEAN CORPUSCULAR HEMOGLOBIN 32.9 PG (27.0-31.0); MEAN CORPUSCULAR HGB CONC 34.3 g/dL (33.0-36.5); MEAN PLATELET VOLUME 9.1 FL (7.4-10.4); MONOCYTES # (AUTO) 0.6 X10'3 (0-0.9); MONOCYTES % (AUTO) 5.5 % (2-12); NEUTROPHILS # (AUTO) 8.3 X10'3 (1.8-7.7); NEUTROPHILS % (AUTO) 80.3 % (42-75); PLATELET COUNT 258 X10'3 (140-440); RED BLOOD COUNT 4.58 X10'6 (4.70-6.10); RED CELL DISTRIBUTION WIDTH 13.9 % (11.5-14.5); WHITE BLOOD COUNT 10.3 X10'3 (4.5-11.0)
[2021-07-20 10:18] LABS: GLUCOSE 198 MG/DL (70-104)
[2021-07-20 10:19] LABS: ALANINE AMINOTRANSFERASE 46 U/L (12-78); ALBUMIN 3.6 G/DL (3.4-5.0); ALBUMIN/GLOBULIN RATIO 0.9 (1.1-1.5); ALKALINE PHOSPHATASE 218 IU/L (46-116); AMYLASE 23 U/L (25-115); ANION GAP 14 (8-16); ASPARTATE AMINO TRANSFERASE 50 U/L (10-37); BILIRUBIN,TOTAL 1.4 MG/DL (0.1-1.0); BLOOD UREA NITROGEN 12 MG/DL (7-18); BUN/CREATININE RATIO 10.9 (5.4-32.0); CALCIUM 8.7 MG/DL (8.5-10.1); CHLORIDE 103 MMOL/L (99-107); ETHANOL < 0.010 GM/DL (0.0-0.010); LIPASE < 50 U/L (73-393); MAGNESIUM 1.6 MG/DL (1.5-2.4); POTASSIUM 3.3 MMOL/L (3.5-5.1); SODIUM 144 MMOL/L (135-145); TOTAL CARBON DIOXIDE 26.7 MMOL/L (24-32); TOTAL PROTEIN 7.4 G/DL (6.4-8.2); eGFR 77 ML/MIN
[2021-07-20] MEDS ORDERED: potassium CL 10mEq/100ml bag 100 ML IV ONE (10:50)
[2021-07-20] MEDS ORDERED: chlordiazePOXIDE 25mg capsule PO ONE (11:20)
[2021-07-20] MEDS ORDERED: CYAN100T43 PO (11:22)
[2021-07-20] MEDS ORDERED: THIA50TA10 PO (11:22)
[2021-07-20] MEDS ORDERED: FOLI0.4T6 PO (11:22)
[2021-07-20] MEDS ORDERED: CHLO25CA10 PO (11:22)
[2021-07-20] MEDS ORDERED: ibuprofen tablet 400 MG TABLET PO ONE (11:40)
[2021-07-20 13:39] VITALS: BP 104/79
--- NOTE | 2021-07-21 10:53 | NUR ---
PT STATES THAT HE WAS SEEN ON 07/20 AND THAT HIS RX FOR LIBRIUM WAS NOT TRANSMITTED TO [place] [facility]. RX FOR LIBRIUM WAS CALLED IN FOR PT PROVIDER ORDERED: LIBRIUM 25MG; 1 PO TID PRN FOR ETOH WITHDRAWL SYMPTOMS FOR 3 DAYS, #15; CALLED INTO [facility] IN [place].
[2021-07-30] MEDS ORDERED: THIA50TA10 PO (23:34)
[2021-07-30] MEDS ORDERED: FOLI0.4T14 PO (23:34)
[2021-07-30] MEDS ORDERED: CYAN100097 PO (23:34)
== END 2021-07-20 13:41 | disposition home or self-care (01) ==
LOC: ER 09:06
DX: R10.12 Left upper quadrant pain (principal); R11.2 Nausea with vomiting, unspecified; F10.239 Alcohol dependence with withdrawal, unspecified; G89.29 Other chronic pain; F17.200 Nicotine dependence, unspecified, uncomplicated; F12.90 Cannabis use, unspecified, uncomplicated; Z72.89 Other problems related to lifestyle; Z79.899 Other long term (current) drug therapy; Y90.9 Presence of alcohol in blood, level not specified
CPT/HCPCS: 36415; 71045; 80053; 80320; 82140; 82150; 83690; 83735; 85025; 93005; 96365; 96366; 96375; 99285; J2060; J2270; J2405; J3411; J3475; J3480; J3490; J7030

== ENCOUNTER 2021-09-23 21:25 | Emergency (ER) | payer MEDICAID ==
[~2021-09-23] VITALS: Ht 162.6 cm; Wt 59.1 kg
[~2021-09-23 21:25] MED LIST changes: +CYAN100097 PO; +FOLI0.4T14 PO; -MULT-1074 PO; -NICO-631 TD; -ONDA4TAB6 PO; -PANT-47 PO; -PANT40TA54 PO; -POTA-197 PO; -SERT-432 PO; -SUCR1TAB34 PO; -THIA100T66 PO; +THIA50TA10 PO
[2021-09-23 22:06] LABS: BASOPHILS # (AUTO) 0.1 X10'3 (0-0.2); BASOPHILS % (AUTO) 0.5 % (0-1); EOSINOPHILS # (AUTO) 0.1 X10'3 (0-0.9); EOSINOPHILS % (AUTO) 0.9 % (0-6); HEMATOCRIT 44.5 % (42.0-52.0); HEMOGLOBIN 14.8 g/dl (14.0-17.9); LYMPHOCYTES # (AUTO) 4.4 X10'3 (1.1-4.8); LYMPHOCYTES % (AUTO) 38.1 % (21-51); MEAN CORPUSCULAR HEMOGLOBIN 32.1 PG (27.0-31.0); MEAN CORPUSCULAR HGB CONC 33.3 g/dL (33.0-36.5); MEAN CORPUSCULAR VOLUME 96.5 FL (78-98); MONOCYTES # (AUTO) 0.6 X10'3 (0-0.9); MONOCYTES % (AUTO) 5.7 % (2-12); NEUTROPHILS # (AUTO) 6.3 X10'3 (1.8-7.7); NEUTROPHILS % (AUTO) 54.8 % (42-75); PLATELET COUNT 222 X10'3 (140-440); RED BLOOD COUNT 4.61 X10'6 (4.70-6.10); RED CELL DISTRIBUTION WIDTH 13.5 % (11.5-14.5); WHITE BLOOD COUNT 11.4 X10'3 (4.5-11.0)
[2021-09-23 22:18] LABS: CLARITY,URINE CLEAR (Clear); COLOR,URINE YELLOW (Yellow); GLUCOSE, URINE NEGATIVE (Neg); KETONES,URINE NEGATIVE (Neg); LEUKOCYTE ESTERASE ,URINE NEGATIVE (Neg); NITRITES, URINE NEGATIVE (Neg); OCCULT BLOOD,URINE NEGATIVE (Neg); PROTEIN,URINE NEGATIVE (Neg); UROBILINOGEN,URINE 0.2 E.U/dL (0.2-1.0)
[2021-09-23 22:24] LABS: UA COLLECTION TYPE CLN CATCH MIDSTREAM
[2021-09-23] MEDS ORDERED: morphine 4 MG/ML inj SYRINge IV ONE ×2 (22:40→23:55)
[2021-09-23] MEDS ORDERED: ondansetron/PF 4mg/2ml inj IV ONE (22:40)
[2021-09-23] MEDS ORDERED: normal saline 1000ml 1,000 ML IV ONE (22:40)
[2021-09-23 23:08] LABS: ANION GAP 6 (8-16); BLOOD UREA NITROGEN 5 MG/DL (7-18); CHLORIDE 98 MMOL/L (99-107); CREATININE 0.84 MG/DL (0.60-1.10); GLUCOSE 121 MG/DL (70-104); SODIUM 138 MMOL/L (135-145)
[2021-09-23 23:09] LABS: ALANINE AMINOTRANSFERASE 59 U/L (12-78); ALBUMIN 3.3 G/DL (3.4-5.0); ALBUMIN/GLOBULIN RATIO 0.9 (1.1-1.5); ALKALINE PHOSPHATASE 171 IU/L (46-116); ASPARTATE AMINO TRANSFERASE 58 U/L (10-37); BILIRUBIN,TOTAL 0.5 MG/DL (0.1-1.0); CALCIUM 8.4 MG/DL (8.5-10.1); LIPASE < 50 U/L (73-393); TOTAL PROTEIN 6.8 G/DL (6.4-8.2); eGFR > 90 ML/MIN
[2021-09-23 23:12] LABS: POTASSIUM 2.7 MMOL/L (3.5-5.1)
[2021-09-23] MEDS ORDERED: potassium Cl 20 mEq SR tablet PO STA (23:36)
[2021-09-24] MEDS ORDERED: HYDROmorphone inj. 0.5 MG/0.5 ML DISP.SYRIN IV ONE (01:50)
[2021-09-24 02:14] VITALS: BP 99/69
== END 2021-09-24 02:43 | disposition home or self-care (01) ==
LOC: ER 21:26
DX: K86.0 Alcohol-induced chronic pancreatitis (principal); E87.6 Hypokalemia; F12.10 Cannabis abuse, uncomplicated; Z79.899 Other long term (current) drug therapy
CPT/HCPCS: 36415; 74176; 80053; 81003; 83690; 83735; 85025; 93005; 96361; 96374; 96375; 96376; 99285; J1170; J2270; J2405; J7030

== ENCOUNTER 2021-10-13 14:52 | Emergency (ER) | payer MEDICAID ==
[~2021-10-13] VITALS: Ht 165.1 cm; Wt 59.1 kg
[2021-10-13 15:51] LABS: BASOPHILS # (AUTO) 0.1 X10'3 (0-0.2); BASOPHILS % (AUTO) 0.7 % (0-1); EOSINOPHILS % (AUTO) 0.1 % (0-6); HEMATOCRIT 43.3 % (42.0-52.0); LYMPHOCYTES # (AUTO) 1.6 X10'3 (1.1-4.8); LYMPHOCYTES % (AUTO) 20.3 % (21-51); MEAN CORPUSCULAR HEMOGLOBIN 33.3 PG (27.0-31.0); MEAN CORPUSCULAR HGB CONC 34.6 g/dL (33.0-36.5); MEAN CORPUSCULAR VOLUME 96.2 FL (78-98); MEAN PLATELET VOLUME 8.9 FL (7.4-10.4); MONOCYTES # (AUTO) 0.5 X10'3 (0-0.9); MONOCYTES % (AUTO) 6.7 % (2-12); NEUTROPHILS # (AUTO) 5.8 X10'3 (1.8-7.7); NEUTROPHILS % (AUTO) 72.2 % (42-75); PLATELET COUNT 203 X10'3 (140-440); RED BLOOD COUNT 4.51 X10'6 (4.70-6.10); RED CELL DISTRIBUTION WIDTH 13.6 % (11.5-14.5); WHITE BLOOD COUNT 8.1 X10'3 (4.5-11.0)
[2021-10-13 16:22] LABS: ALANINE AMINOTRANSFERASE 119 U/L (12-78); ALBUMIN 3.3 G/DL (3.4-5.0); ALBUMIN/GLOBULIN RATIO 0.9 (1.1-1.5); ALKALINE PHOSPHATASE 203 IU/L (46-116); ANION GAP 17 (8-16); ASPARTATE AMINO TRANSFERASE 158 U/L (10-37); BILIRUBIN,TOTAL 2.2 MG/DL (0.1-1.0); BLOOD UREA NITROGEN 8 MG/DL (7-18); BUN/CREATININE RATIO 8.1 (5.4-32.0); CALCIUM 8.8 MG/DL (8.5-10.1); CHLORIDE 99 MMOL/L (99-107); CREATININE 0.99 MG/DL (0.60-1.10); GLUCOSE 146 MG/DL (70-104); LIPASE < 50 U/L (73-393); SODIUM 145 MMOL/L (135-145); TOTAL CARBON DIOXIDE 28.8 MMOL/L (24-32); eGFR 87 ML/MIN
[2021-10-14] MEDS ORDERED: LORazepam 2 mg/ml vial IV ONE (00:05)
[2021-10-14] MEDS ORDERED: ondansetron/PF 4mg/2ml inj IV ONE (00:05)
[2021-10-14] MEDS ORDERED: normal saline 1000ML IV soln IVB ONE (00:05)
[2021-10-14] MEDS: morphine 4 MG/ML inj SYRINge IV PRN ×2 (00:24→02:05)
[2021-10-14] MEDS ORDERED: POTASSIUM BICARB 20meq eff tab 20 MEQ TABLET.EFF PO ONE (02:10)
[2021-10-14] MEDS ORDERED: potassium Cl 10 mEq/100mL bag IV ONE (02:10)
[2021-10-14 04:02] VITALS: BP 108/78
[2021-10-14] MEDS ORDERED: fentaNYL/PF 50MCG/1 ML 2ML syringe IV ONE (04:10)
[2021-10-14] MEDS ORDERED: ONDA4TAB12 PO (04:24)
[2021-10-14] MEDS ORDERED: PROC-8 PO (04:24)
== END 2021-10-14 04:28 | disposition home or self-care (01) ==
LOC: ER 14:53
DX: K70.10 Alcoholic hepatitis without ascites (principal); F10.139 Alcohol abuse with withdrawal, unspecified; K86.1 Other chronic pancreatitis; E87.6 Hypokalemia; G89.29 Other chronic pain; F12.90 Cannabis use, unspecified, uncomplicated; Z72.89 Other problems related to lifestyle; Z79.899 Other long term (current) drug therapy; Y90.9 Presence of alcohol in blood, level not specified
CPT/HCPCS: 36415; 80053; 83690; 84484; 85025; 96361; 96365; 96375; 96376; 99284; J2060; J2270; J2405; J3010; J3480; J7030

== ENCOUNTER 2021-10-31 23:05 | Emergency (ER) | payer MEDICAID ==
[~2021-10-31] VITALS: Ht 162.6 cm; Wt 61.4 kg
[~2021-10-31 23:05] MED LIST changes: -CYAN100097 PO; -FOLI0.4T14 PO; +GABA600T13 PO; +NALT50TA PO; +NICO-687 TD; +NO HOME MEDS; +PANT40TA54 PO; +SUCR1TAB34 PO; -THIA50TA10 PO
[2021-10-31 23:10] VITALS: BP 112/77
[2021-11-01 00:37] LABS: ALANINE AMINOTRANSFERASE 74 U/L (12-78); ALBUMIN 2.7 G/DL (3.4-5.0); ALBUMIN/GLOBULIN RATIO 0.8 (1.1-1.5); ALKALINE PHOSPHATASE 268 IU/L (46-116); ANION GAP 9 (8-16); ASPARTATE AMINO TRANSFERASE 90 U/L (10-37); BILIRUBIN,TOTAL 2.6 MG/DL (0.1-1.0); BLOOD UREA NITROGEN 2 MG/DL (7-18); BUN/CREATININE RATIO 2.2 (5.4-32.0); CALCIUM 8.4 MG/DL (8.5-10.1); CHLORIDE 105 MMOL/L (99-107); GLUCOSE 134 MG/DL (70-104); POTASSIUM 3.6 MMOL/L (3.5-5.1); SODIUM 138 MMOL/L (135-145); TOTAL CARBON DIOXIDE 23.9 MMOL/L (24-32); TOTAL PROTEIN 6.3 G/DL (6.4-8.2); eGFR > 90 ML/MIN
[2021-11-01 00:38] LABS: LIPASE < 50 U/L (73-393)
[2021-11-01 00:39] LABS: BASOPHILS % (AUTO) 0.3 % (0-1); EOSINOPHILS # (AUTO) 0.1 X10'3 (0-0.9); EOSINOPHILS % (AUTO) 0.9 % (0-6); HEMATOCRIT 38.4 % (42.0-52.0); LYMPHOCYTES # (AUTO) 2.4 X10'3 (1.1-4.8); LYMPHOCYTES % (AUTO) 23.1 % (21-51); MEAN CORPUSCULAR HGB CONC 33.8 g/dL (33.0-36.5); MEAN CORPUSCULAR VOLUME 100.8 FL (78-98); MEAN PLATELET VOLUME 9.6 FL (7.4-10.4); MONOCYTES # (AUTO) 0.7 X10'3 (0-0.9); MONOCYTES % (AUTO) 7.1 % (2-12); NEUTROPHILS # (AUTO) 7.2 X10'3 (1.8-7.7); NEUTROPHILS % (AUTO) 68.6 % (42-75); PLATELET COUNT 192 X10'3 (140-440); RED BLOOD COUNT 3.81 X10'6 (4.70-6.10); RED CELL DISTRIBUTION WIDTH 15.2 % (11.5-14.5); WHITE BLOOD COUNT 10.5 X10'3 (4.5-11.0)
== END 2021-11-01 00:55 | disposition left against medical advice (07) ==
LOC: ER 23:05
DX: F10.10 Alcohol abuse, uncomplicated (principal); R10.9 Unspecified abdominal pain; Z53.21 Procedure and treatment not carried out due to patient leaving prior to being seen by health care provider; Y90.9 Presence of alcohol in blood, level not specified
CPT/HCPCS: 80053; 83690; 85025

== ENCOUNTER 2021-11-01 01:01 | Emergency (ER) | payer MEDICAID ==
[~2021-11-01] VITALS: Ht 162.6 cm; Wt 61.4 kg
[2021-11-01 01:33] VITALS: BP 132/78
== END 2021-11-01 06:01 | disposition left against medical advice (07) ==
LOC: ER 01:05
DX: R10.9 Unspecified abdominal pain (principal); Z53.21 Procedure and treatment not carried out due to patient leaving prior to being seen by health care provider